=== PATIENT | female | born 1955 | race Caucasian/White ===

== ENCOUNTER 2021-01-06 13:19 | Outpatient (REF) | payer MEDICARE, SELFPAY ==
--- NOTE | ~2021-01-06 | XR_ITS ---
EXAMINATION: XR FOREARM, RIGHT XR WRIST, RIGHT XR RIGHT RIBS WITH CHEST CLINICAL INFORMATION: Unspecified fall. COMPARISON: None TECHNIQUE: 2 views right forearm. 4 views right wrist. Chest and right ribs 4 views. FINDINGS: RIGHT FOREARM: There is no visible fracture, dislocation or soft tissue abnormality. RIGHT WRIST: There is no visible acute fracture, dislocation or subluxation seen. The soft tissues are normal. CHEST: Lungs are well expanded and clear. The heart size and pulmonary vascularity are normal. RIGHT RIBS: Multiple views of right ribs reveal no visible fracture or bony abnormality. The soft tissues are normal. XR/XR ribs RT min 3V w CXR1V IMPRESSION: Unremarkable right forearm. Unremarkable right wrist exam. No fracture seen. Unremarkable chest and right rib exam.
--- NOTE | ~2021-01-06 | XR_ITS ---
EXAMINATION: XR FOREARM, RIGHT XR WRIST, RIGHT XR RIGHT RIBS WITH CHEST CLINICAL INFORMATION: Unspecified fall. COMPARISON: None TECHNIQUE: 2 views right forearm. 4 views right wrist. Chest and right ribs 4 views. FINDINGS: RIGHT FOREARM: There is no visible fracture, dislocation or soft tissue abnormality. RIGHT WRIST: There is no visible acute fracture, dislocation or subluxation seen. The soft tissues are normal. CHEST: Lungs are well expanded and clear. The heart size and pulmonary vascularity are normal. RIGHT RIBS: Multiple views of right ribs reveal no visible fracture or bony abnormality. The soft tissues are normal. XR/XR forearm RT 2V IMPRESSION: Unremarkable right forearm. Unremarkable right wrist exam. No fracture seen. Unremarkable chest and right rib exam.
--- NOTE | ~2021-01-06 | XR_ITS ---
EXAMINATION: XR FOREARM, RIGHT XR WRIST, RIGHT XR RIGHT RIBS WITH CHEST CLINICAL INFORMATION: Unspecified fall. COMPARISON: None TECHNIQUE: 2 views right forearm. 4 views right wrist. Chest and right ribs 4 views. FINDINGS: RIGHT FOREARM: There is no visible fracture, dislocation or soft tissue abnormality. RIGHT WRIST: There is no visible acute fracture, dislocation or subluxation seen. The soft tissues are normal. CHEST: Lungs are well expanded and clear. The heart size and pulmonary vascularity are normal. RIGHT RIBS: Multiple views of right ribs reveal no visible fracture or bony abnormality. The soft tissues are normal. XR/XR wrist RT min 3V IMPRESSION: Unremarkable right forearm. Unremarkable right wrist exam. No fracture seen. Unremarkable chest and right rib exam.
== END 2021-01-06 13:20 | disposition home or self-care (01) ==
LOC: HO.XRAY 13:19
PROVIDERS: PCP Internal Medicine; Visit Provider Nurse Practitioner Family
DX: S29.9XXA Unspecified injury of thorax, initial encounter (principal); S69.91XA Unspecified injury of right wrist, hand and finger(s), initial encounter; S59.911A Unspecified injury of right forearm, initial encounter; W19.XXXA Unspecified fall, initial encounter
CPT/HCPCS: 71101; 73090; 73110

== ENCOUNTER 2021-06-30 07:26 | Outpatient (REF) | payer MEDICARE, SELFPAY ==
[2021-06-30 11:24] LABS: Appearance Urine CLOUDY; Color Urine YELLOW; Glucose Urine UA NEG (NEG); Leukocyte Esterase Urine TRACE (NEG); Nitrite Urine NEG (NEG); Urine Blood NEG (NEG); Urine Ketones NEG (NEG); Urine Protein NEG (NEG-TRACE)
[2021-06-30 11:38] LABS: Mucus Urine 1+ /LPF; RBC Urine 0 /HPF (0); Squamous Epithelial Cell Urine 1+ /LPF
[2021-06-30 11:39] LABS: Bacteria Urine 2+ /LPF
[2021-06-30 11:40] LABS: Hematocrit 44.5 % (37.0-47.0); Hemoglobin 14.7 g/dl (12.0-16.0); Mean Corpuscular Hemoglobin 31.3 pg (27.0-33.0); Mean Corpuscular Volume 94.9 fL (80.0-98.0); Mean Platelet Volume 10.1 fL (9.4-12.3); Platelet Count 207 X10*3/uL (160-400); Red Blood Count 4.69 X10*6/uL (4.20-5.50); Red Cell Distribution Width 12.8 % (11.0-16.0); White Blood Count 4.3 X10*3/uL (4.8-10.8)
[2021-06-30 11:56] LABS: Alanine Aminotransferase 24 U/L (0-31); Albumin Level 4.2 g/dL (3.5-5.0); Alkaline Phosphatase 85 U/L (39-117); Anion Gap 15 (12-20); Aspartate Amino Transferase 18 U/L (5-31); Bilirubin Total 0.4 mg/dL (0.0-1.0); Blood Urea Nitrogen 14 mg/dL (9-16); Carbon Dioxide 27 mmol/L (22-29); Chloride 104 mmol/L (96-108); Cholesterol 214 mg/dL; Estimated Glomerular Filt Rate > 60; Glucose Fasting 100 mg/dL (60-99); HDL Cholesterol 73 mg/dL; LDL Cholesterol Calculated 122 mg/dl; Potassium 4.7 mmol/L (3.3-5.1); Sodium 141 mmol/L (135-145); Total Protein 6.6 g/dL (6.5-8.0); Triglycerides 99 mg/dL
== END 2021-06-30 07:27 | disposition home or self-care (01) ==
LOC: HO.HMGCLDS 07:26
PROVIDERS: PCP Internal Medicine; Visit Provider Internal Medicine
DX: I10 Essential (primary) hypertension (principal)
CPT/HCPCS: 36415; 80053; 80061; 81001; 84443; 85027

== ENCOUNTER 2021-08-25 14:00 | Outpatient (RCR) | payer MEDICARE, SELFPAY ==
--- NOTE | 2021-07-27 10:06 | MHC.PT.EP ---
[facility] [place] Office [place] Office [place] Office [address] [phone] F: [phone] F: [phone] F: [phone] F: [phone] Physical Therapy Plan of Care Date of Evaluation: Date of Surgery: N/A Diagnosis: Cervicalgia Pain in R shoulder Assessment: Pt is a pleasant 66yo F who presents to PT with R shoulder/neck pain s/p fall in December. She presents today with current impairments in pain, decreased R shoulder and cervical ROM, decreased R shoulder strength and endurance, impaired posture, and soft tissue restrictions. She is TTP throughout R UT, levator, and medial scap border. She is limited functionally by overhead ADLs, lifting, vacuuming, reading, and driving. She is an excellent candidate for skilled PT services to address current impairments in order to facilitate return to PLOF. She will be seen 2x/week for 4 weeks and will be reassessed at that time. Frequency and Duration: The patient will be seen 2x/week for 4 weeks Short Term Goals: Pt will be I with HEP to promote self management of symtpoms Pt will improve R cervical rotation by at least 5 degrees Longterm Goals: Pt will demonstrate full ROM throughout cervical spine Pt will perform overhead ADLs without pain or compensation throughout R shoulder and cervical spine Pt will demonstrate improvements in functional mobility as evidenced by statistically significant improvement in Neck Pain Disability Index Questionnaire Treatment Plan: Modalities to reduce pain, spasms and effusion. Manual therapy to restore motion and function. Therapeutic exercise to improve strength and flexibility. Neuromuscular re-education for posture and balance. Therapeutic activities to return to functional activities of daily living. Electronically signed by: Huyen Fowler, PT, DPT Please sign and return to therapist. Thank you for your referral.
--- NOTE | 2021-08-25 15:36 | MHC.PT.DC ---
[facility] [place] Office [place] Office [place] Office [address] [phone] F: [phone] F: [phone] F: [phone] F: [phone] Physical Therapy Discharge Report Diagnosis: Cervicalgia Pain in R shoulder Date of Surgery: N/A Date of Evaluation: 07/26/21 Date of Discharge: 08/25/21 Treatments to Date: 9 Cancellations to Date: 0 No Shows to Date: Discharge Status: Achieved Goals Improved Function Independent with HEP Discharge Summary: Pt has made excellent progress since SOC. She has met her STGs and made good progress toward her LTGs. She has had a decrease in pain and has improved cervical spine ROM. She is I and compliant with HEP. Pt is being D/C from skilled PT services at this time. Provided pt with printed, updated copy of HEP and theraband. Pt reports no further questions or concerns for PT at this time. Electronically signed by: Huyen Folwer, PT, DPT Please sign and return to therapist. Thank you for your referral.
== END 2021-08-25 15:36 | disposition home or self-care (01) ==
LOC: HO.PT 14:00
PROVIDERS: PCP Internal Medicine; Visit Provider Internal Medicine
DX: M54.2 Cervicalgia (principal); M25.511 Pain in right shoulder
CPT/HCPCS: 97110; 97140; 97150; 97161; 97530

== ENCOUNTER 2022-01-26 14:36 | Emergency (ER) | payer MEDICARE, SELFPAY ==
--- NOTE | ~2022-01-26 | XR_ITS ---
EXAMINATION: XR FINGER, LEFT CLINICAL INFORMATION: Middle finger injury COMPARISON: None TECHNIQUE: Three views of the left third finger. FINDINGS: Bone alignment is normal. No fracture or dislocation is seen. The bone appear osteopenic. The joint spaces are normal. Soft tissues are normal. XR/XR finger LT min 2V IMPRESSION: No fracture or dislocation.
[2022-01-26 14:46] VITALS: BP 128/77; PULSE 65; RESP 18; TEMP 36.3; O2SAT 97; BMI 20.3
--- NOTE | 2022-01-26 16:26 | ED_ITS ---
HPI - Extremity Problem General Chief complaint: Extremity Injury, Upper Stated complaint: l middle finger inj Time Seen by Provider: 01/26/22 15:36 Source: patient Mode of arrival: ambulatory Limitations: no limitations History of Present Illness HPI Narrative: 66-year-old female [id number] here with reports of pain, swelling and abrasions the left middle finger. Patient tells me she was vacuuming and her finger got Caught in the hose as the vaccum was on. She was able to remove finger without any intervention. She denies any weakness, numbness, tingling of the finger. Tetanus is up-to-date Related Data Previous Rx's Medication Instructions Recorded lisinopril 2.5 mg tablet 2.5 mg PO DAILY #90 tabs 03/18/21 diltiazem HCl 120 mg capsule,24 120 mg PO DAILY #90 caps 12/20/21 hr,extended release (Tiadylt ER) Allergies Allergy/AdvReac Type Severity Reaction Status Date / Time azithromycin AdvReac Unknown upset Verified 12/27/21 13:56 stomach Review of Systems Review of Systems: Yes all other systems are reviewed and are negative Constitutional: Constitutional: Reports no additional constitutional complaints, Denies fever(s) and Denies weakness Eyes: Eyes: Reports no additional eye complaints ENT: Reports system reviewed and no additional complaints, except as documented Cardiovascular: Cardiovascular: Reports no additional cardiovascular complaints and Denies acrocyanosis Respiratory: Respiratory: Reports no additional respiratory complaints Gastrointestinal: Gastrointestinal: Reports no additional gastrointestinal complaints Genitourinary: Genitourinary: Reports no additional female genitourinary complaints Musculoskeletal: Musculoskeletal: Reports no additional musculoskeletal complaints, Reports arthralgias, Reports joint swelling, Denies numbness and Denies tingling Integumentary/Breasts: Skin/Breast: Reports system reviewed and no additional complaints, except as docu and Denies rash Neurologic: Reports system reviewed and no additional complaints, except as documented, Denies Abnormal speech present, Denies numbness, Denies tingling and Denies weakness PMFSH Past Medical History Attestation statement: The following information was validated with the patient. Source: old records reviewed and nursing notes reviewed Medical History Esophageal spasm Mixed basal-squamous cell carcinoma Surgical History H/O colonoscopy S/P MAYELA (total abdominal hysterectomy) Social History Social History Housing: House Alcohol intake: current Alcohol intake frequency: a few times a week Patient Tobacco Use Status: Never used Tobacco e-Cigarette/Vaping Use: Never Used Advance Directives: No Advance Directives Information Provided: No Current occupational status: retired Cognitive needs: No Hearing needs: No Vision needs: Yes Physical Exam Vital Signs: Vital Signs: Last Vital Signs Temp 97.3 F 01/26/22 14:46 Pulse 65 01/26/22 14:46 Resp 18 01/26/22 14:46 BP 128/77 01/26/22 14:46 Pulse Ox 97 01/26/22 14:46 O2 Del Method 01/26/22 14:46 BMI result Body Mass Index 20.3 Const: General: cooperative, healthy appearing, comfortable and no acute distress Orientation/consciousness: patient oriented x3 Limitations: no limitations HEENT: Head: Yes normal to inspection Ears: hearing grossly normal bilaterally Eyes: General: appearance normal, both eyes and all related structures Neck: Neck: Yes normal visual inspection Chest: Chest palpation & inspection: normal inspection of the chest Resp: Effort & Inspection: normal respiratory effort Neuro: General: patient oriented x3 Cognition (Neuro): normal cognition Speech: No Abnormal speech present Gait exam (Neuro): Normal gait present Extrem: Other: to the dorsal aspect of the left middle finger there are abrasions. There is ecchymosis and swelling noted of the finger. The patient is able to flex the finger but does have some pain with flexion. There is no difficulty with extension. Neurovascularly intact distally to the injury. Normal cap refill. General: Yes normal to inspection Course Course Course Narrative: 66-year-old female [id number] here with reports of swelling, bruising, abrasions left middle finger after her finger was stuck in the vacuum hose. X- ray show no bony abnormality. Range of motion is intact. The patient's wound was cleansed by nursing and a topical antibiotic ointment was applied. Likely abrasions and contusions. Reviewed worrisome signs and symptoms and when to return to the emergency department. Comfortable discharge home. MDM - Extremity (Nontraumatic) Medical Records Attestation: I reviewed the patient's medical records. Lab Data Attestation: I reviewed the patient's lab results. Imaging Data hand xray: Attestation: I personally reviewed and interpreted this imaging study as gavin ariadne: Radiologist's impression: EXAMINATION: XR FINGER, LEFT CLINICAL INFORMATION: Middle finger injury? COMPARISON: None? TECHNIQUE: Three views of the left third finger. FINDINGS: Bone alignment is normal. No fracture or dislocation is seen. The bone appear osteopenic. The joint spaces are normal. Soft tissues are normal.? XR/XR finger LT min 2V IMPRESSION: No fracture or dislocation. ? Discharge Plan Discharge Clinical Impression: Contusion of finger of left hand, Abrasion of finger of left hand Patient Disposition: Home, Self-Care Instructions: Contusion in Adults (ED), Abrasion (ED) Additional Instructions: x-ray show no bony abnormality keep the abrasions clean, dry and covered ice as needed Motrin or Tylenol for pain Prescriptions: No Action lisinopril 2.5 mg tablet 2.5 mg PO DAILY Qty: 90 3RF diltiazem HCl [Tiadylt ER] 120 mg capsule,extended release 24 hr 120 mg PO DAILY Qty: 90 3RF Referrals: Tona Marte MD [Primary Care Provider] - 1 week ( for any persistent symptoms)
== END 2022-01-26 16:40 | disposition home or self-care (01) ==
LOC: HO.ED 16:23
PROVIDERS: Emergency Provider Emergency Medicine Emergency Medical Services; PCP Internal Medicine
DX: S60.222A Contusion of left hand, initial encounter (principal); S60.413A Abrasion of left middle finger, initial encounter; X58.XXXA Exposure to other specified factors, initial encounter; Y93.E3 Activity, vacuuming; Y92.9 Unspecified place or not applicable; Y99.9 Unspecified external cause status
CPT/HCPCS: 73140; 99283

== ENCOUNTER 2023-01-06 08:02 | Outpatient (REF) | payer MEDICARE, SELFPAY ==
[2023-01-06 08:16] LABS: MANUAL DIFF FLAG NO
[2023-01-06 08:46] LABS: Basophils Percent Auto 0.9 % (0-2); Eosinophils Absolute Auto 0.2 X10*3/uL (0.0-0.4); Eosinophils Percent Auto 5.4 % (0-4); Hematocrit 43.6 % (37.0-47.0); Hemoglobin 14.5 g/dl (12.0-16.0); Imm Gran Abs Auto 0.01 X10*3/uL (0.00-0.03); Imm Gran Pct Auto 0.2 % (0.0-0.4); Lymphocytes Absolute Auto 1.4 X10*3/uL (1.2-4.9); Lymphocytes Percent Auto 31.6 % (20-40); Mean Corpuscular HGB Conc 33.3 g/dl (31.0-35.0); Mean Corpuscular Hemoglobin 31.4 pg (27.0-33.0); Mean Corpuscular Volume 94.4 fL (80.0-98.0); Mean Platelet Volume 9.8 fL (9.4-12.3); Monocytes Absolute Auto 0.4 X10*3/uL (0.1-1.2); Monocytes Percent Auto 8.9 % (2-11); Neutrophils Absolute Auto 2.3 x10*3/uL (2.0-8.3); Platelet Count 197 X10*3/uL (160-400); Red Blood Count 4.62 X10*6/uL (4.20-5.50); Red Cell Distribution Width 12.7 % (11.0-16.0); White Blood Count 4.3 X10*3/uL (4.8-10.8)
[2023-01-06 09:17] LABS: Alanine Aminotransferase 18 U/L (0-31); Albumin Level 4.1 g/dL (3.5-5.0); Alkaline Phosphatase 73 U/L (39-117); Anion Gap 12 (12-20); Aspartate Amino Transferase 16 U/L (5-31); Bilirubin Total 0.5 mg/dL (0.0-1.0); Blood Urea Nitrogen 18 mg/dL (9-16); Calcium 9.4 mg/dL (8.4-10.2); Carbon Dioxide 28 mmol/L (22-29); Chloride 108 mmol/L (96-108); Cholesterol 204 mg/dL; Estimated Glomerular Filt Rate > 60; Glucose Fasting 102 mg/dL (60-99); HDL Cholesterol 76 mg/dL; LDL Cholesterol Calculated 111 mg/dl; Potassium 4.4 mmol/L (3.3-5.1); Sodium 144 mmol/L (135-145); Total Protein 6.4 g/dL (6.5-8.0); Triglycerides 89 mg/dL
[2023-01-06 09:33] LABS: TSH reflex Free T4 1.81 uIU/mL (0.32-4.0); Vitamin D 25-OH Total 37.3 ng/mL (>30)
== END 2023-01-06 08:03 | disposition home or self-care (01) ==
LOC: HO.LAB 08:02
PROVIDERS: PCP Internal Medicine; Visit Provider Internal Medicine
DX: Z00.00 Encounter for general adult medical examination without abnormal findings (principal); I10 Essential (primary) hypertension; M85.80 Other specified disorders of bone density and structure, unspecified site; E55.9 Vitamin D deficiency, unspecified
CPT/HCPCS: 36415; 80053; 80061; 82306; 84443; 85025

== ENCOUNTER 2023-01-24 14:11 | Outpatient (REF) | payer MEDICARE, SELFPAY ==
--- NOTE | ~2023-01-24 | MM_ITS ---
EXAMINATION: BONE DENSITOMETRY CLINICAL INDICATION: Other specified disorders of bone density and structure, unspecified site. COMPARISON: Baseline BD dated 07/17/2019. TECHNIQUE: Using a [employer] DXA System (software version: 13.1) manufactured by [employer], dual-energy x-ray absorptiometry was performed of the lumbar spine and left hip. The images are of good technical quality. Summary results are attached. FINDINGS: AP SPINE L1-L4: Current: BMD 0.831 g/cm2, Z-score -1.0, T-score -2.9, osteoporosis, 7.0% decrease from baseline (<5% change is not significant). Baseline: BMD 0.894 g/cm2. LEFT FEMUR, NECK: Current: BMD 0.723 g/cm2, Z-score -0.5, T-score -2.3, osteopenia. Baseline: BMD 0.744 g/cm2. LEFT FEMUR, TOTAL: Current: BMD 0.777 g/cm2, Z-score -0.3, T-score -1.8, osteopenia, 4.4% decrease from baseline (<5% change is not significant). Baseline: BMD 0.813 g/cm2. IDENTIFIED RISK FACTORS: Early menopause, history of fracture (adult), hysterectomy, right oophorectomy, secondary osteoporosis. HISTORY OF FRACTURE: Wrist. MEDICATIONS: Vitamin D. MM/XR DEXA axial skeleton IMPRESSION: 1. DIAGNOSIS: Osteoporosis based on the lowest T-score value of -2.9 in the lumbar spine applying World Health Organization criteria. 2. 10-YEAR FRACTURE RISK PREDICTION, FRAX: According to the guidelines, FRAX calculation should only be performed on patients in the osteopenia bone density category. Therefore, FRAX was not performed on this patient. 3. Treatment Recommendations: NOF guidelines recommend consideration for treatment in postmenopausal women and men age 50 and older presenting with the following: -A hip or vertebral (clinical or morphometric) fracture. -T-score less than or equal to -2.5 at the femoral neck or spine after appropriate evaluation to exclude secondary causes. -Low bone mass at the hip or spine and a 10-year fracture probability by FRAX of greater than or equal to 3% for hip fracture or greater than or equal to 20% for major osteoporotic fracture based on the [place] adapted WHO algorithm. 4. Other Recommendations: All treatment decisions require clinical judgment and consideration of individual patient factors, including patient preferences, comorbidities, previous drug use, risk factors not captured in the FRAX model (e.g. frailty, falls, vitamin D deficiency, increased bone turnover, interval significant decline in bone density) and possible under or overestimation of fracture risk by FRAX. Additional medical evaluation for secondary cause of low bone mineral density may be appropriate. FUTURE SCAN RECOMMENDATION: People with diagnosed cases of osteoporosis or at high risk for fracture should have regular bone mineral density tests. For patients eligible for Medicare, routine testing is allowed once every 2 years. The testing frequency can be increased to one year for patients who have rapidly progressing disease, those who are receiving or discontinuing medical therapy to restore bone mass, or have additional risk factors.
== END 2023-01-24 14:12 | disposition home or self-care (01) ==
LOC: HO.MAMMO 14:11
PROVIDERS: PCP Internal Medicine; Visit Provider Internal Medicine
DX: Z13.820 Encounter for screening for osteoporosis (principal); Z78.0 Asymptomatic menopausal state; M85.80 Other specified disorders of bone density and structure, unspecified site
CPT/HCPCS: 77080

== ENCOUNTER 2023-02-21 12:37 | Outpatient (AMB) | payer MEDICARE, SELFPAY ==
[2023-02-21 12:41] VITALS: BP 110/66; PULSE 72; O2SAT 97
--- NOTE | 2023-02-21 12:41 | MHC.PC.OV ---
Vital Signs 02/21/23 12:41 Height 5 ft 7 in Weight 128 lb BMI 20.0 BP 110/66 Blood Pressure Location Lt brachial Position Sitting Pulse 72 Pulse Source Pulse Oximeter Pulse Oximetry (%) 97 Oxygen Delivery Method Room Air Intake Visit Reasons: Discuss osteoporosis treatment Intake Note: Pt is here today for a follow up visit on Bone density results. Allergies azithromycin Adverse Reaction (Unknown, Verified 02/21/23 12:46) upset stomach Tobacco use date assessed: 02/21/23 Dental Screening Dental Screen Date: 02/21/23 Did you have a dental visit in the last 12 months?: Yes Did you have a dental problem in the last 6 months where you did not have access to dental care?: No Was dental information given to patient?: Patient has dentist HPI Discuss osteoporosis treatment HPI Details Patient presents to discuss osteoporosis. She had DEXA which revealed osteoporosis in lumbar spine with SD of -2.8. Patient is concerned about side effects of Fosamax. She has been exercising 4 times a week, walking and taking supplemental vitamin-D 3. [facility] Medical History (Updated 02/21/23 @ 13:32 by Tona Marte MD) Annual physical exam Esophageal spasm HTN (hypertension) Insomnia Mixed basal-squamous cell carcinoma Neck pain on right side Osteopenia Shoulder pain, right Vitamin D deficiency Surgical History H/O colonoscopy S/P MAYELA (total abdominal hysterectomy) Family History Father Hypertension Lymphoma Mother Hypertension Brother Mental health disorder Substance use disorder Social History Housing: House Alcohol intake: current Alcohol intake frequency: a few times a week Patient Tobacco Use Status: Never used Tobacco e-Cigarette/Vaping Use: Never Used Current occupational status: retired Cognitive needs: No Hearing needs: No Vision needs: Yes Questionnaire Thrive Questionnaire Date Thrive assessed: 01/03/23 AUDIT C Alcohol Use Questionnaire (AUDIT-C) 1. How often do you have a drink containing alcohol?: 2-3 times a week 2. How many drinks containing alcohol do you have on a typical day when you are drinking?: 1 or 2 3. How often do you have six or more drinks on one occasion?: Never Total Score: 3 AUGUSTINA-7 AMB Questionnaire AUGUSTINA-7 Date AUGUSTINA - 7 assessed: 01/03/23 Feeling nervous, anxious, or on edge: 3 = Nearly every day Not being able to stop or control worryin = Several days Worrying too much about different things: 2 = More than half the days Trouble relaxin = More than half the days Being so restless that it is hard to sit still: 3 = Nearly every day Becoming easily annoyed or irritable: 0 = Not at all Feeling afraid as if something awful might happen: 0 = Not at all Total AUGUSTINA-7 score (0-4 normal; 5-9 mild; 10-14 moderate; 15-21 severe): 11 Source: Developed by Drs. Natanael Mederos, Anupama Griffiths, Jamie Suh and colleagues, with an educational anca from [employer]. Review of Systems Const All systems reviewed & are unremarkable except as noted in HPI and below Reports no additional complaints Eyes Reports no additional complaints ENT Reports no additional complaints Card Reports no additional complaints Resp Reports no additional complaints GI Reports no additional complaints Reports no additional complaints Physical exam (Primary Care) Vital Signs: Last Vital Signs Pulse 72 02/21/23 12:41 BP 110/66 02/21/23 12:41 Pulse Ox 97 02/21/23 12:41 Oxygen Delivery Method Room Air 02/21/23 12:41 BMI result Body Mass Index 20.0 Tobacco/Smoking Status: Tobacco use Status Tobacco use date assessed 02/21/23 02/21/23 12:47 Patient Tobacco Use Status Never used Tobacco 02/21/23 12:41 e-Cigarette/Vaping Use Never Used 02/21/23 12:41 Thrive Assessment: Date of Thrive Assessment Date Thrive assessed 01/03/23 02/21/23 12:41 Const General: no acute distress HENMT Face and sinus: Yes normal facial exam Resp Effort & Inspection: normal respiratory effort Auscultation: clear to auscultation bilaterally Cardio Rhythm: regular rhythm Assessment and Plan Assessment & Plan (1) Osteopenia: Comment: DEXA 08/01, DEXA 01/03 osteoporosis lumbar SD - 2.9. Patient declined treatment with Fosamax. She prefers to recheck DEXA in 2 years Code(s): M85.80 - Other specified disorders of bone density and structure, unspecified site Plan: Patient will continue vitamin-D 3 and add resistant exercises to her exercise routine. DEXA will be rechecked in 2 years (2) HTN (hypertension): Code(s): I10 - Essential (primary) hypertension Plan: Continue current medications Coding Level of Care Code Est Pt Level 3 (41786) Diagnoses Osteopenia M85.80 HTN (hypertension) I10
== END 2023-02-21 13:34 | disposition home or self-care (01) ==
PROVIDERS: PCP Internal Medicine; Visit Provider Internal Medicine
DX: M85.80 Other specified disorders of bone density and structure, unspecified site (principal); I10 Essential (primary) hypertension
CPT/HCPCS: 99213

== ENCOUNTER 2023-08-18 12:54 | Emergency (ER) | payer MEDICARE, SELFPAY ==
[2023-08-18 13:40] VITALS: BP 137/80; PULSE 77; RESP 18; TEMP 36; O2SAT 98; BMI 20.4
--- NOTE | 2023-08-18 13:40 | ED.URI ---
HPI - URI/Sore Throat General Chief Complaint: Upper Respiratory Symptoms Stated Complaint: Cough/Congestion Time Seen by Provider: 08/18/23 15:05 Source: patient Mode of arrival: ambulatory Limitations: no limitations History of Present Illness HPI Narrative: Patient is a 68-year-old female presents emergency department with 1 week of productive cough with yellow/ green phlegm, sore throat which has been improving, sinus pressure, and myalgias. Endorses shortness of breath particularly during coughing episodes and chest discomfort diffusely across anterior chest experienced only while coughing. Denies fevers, chills, headache, dizziness, neck pain, neck stiffness, nausea, vomiting, abdominal pain, numbness or tingling of the extremities, genitourinary symptoms. Related Data Previous Rx's Medication Instructions Recorded diltiazem HCl 120 mg capsule,24 120 mg PO DAILY #90 caps 12/08/22 hr,extended release (Tiadylt ER) lisinopril 2.5 mg tablet 2.5 mg PO DAILY #90 tabs 03/07/23 amoxicillin 875 mg tablet 875 mg PO BID #14 tabs 06/19/23 amoxicillin 875 mg-potassium 1 tab PO BID #14 tabs 08/18/23 clavulanate 125 mg tablet Allergies Allergy/AdvReac Type Severity Reaction Status Date / Time azithromycin AdvReac Unknown upset Verified 08/18/23 13:40 stomach Review of Systems Review of Systems: Yes all other systems are reviewed and are negative PMFSH Past Medical History Attestation statement: The following information was validated with the patient. Source: old records reviewed Onset Date is defined in the Problem List Problems that require an onset date and time if occurred within 24 hrs of arrival to the ED Aortic Dissection and Rupture; Neurologic impairment; Cardiopulmonary Arrest; Endotracheal Intubation; Insertion or Replacement of Mechanical Circulatory Assist Device Medical History Vitamin D deficiency Shoulder pain, right Neck pain on right side Insomnia Annual physical exam Esophageal spasm Mixed basal-squamous cell carcinoma Osteopenia HTN (hypertension) Surgical History S/P MAYELA (total abdominal hysterectomy) H/O colonoscopy Family History Family History Father Hypertension Lymphoma Mother Hypertension Brother Mental health disorder Substance use disorder Social History Social History Housing: House Alcohol intake: current Alcohol intake frequency: a few times a week Patient Tobacco Use Status: Never used Tobacco e-Cigarette/Vaping Use: Never Used Advance Directives: No Advance Directives Information Provided: Yes Current occupational status: retired Cognitive needs: No Hearing needs: No Vision needs: Yes Physical Exam Vital Signs: Vital Signs: Last Vital Signs Temp 96.8 F 08/18/23 13:40 Pulse 73 08/18/23 15:10 Resp 14 08/18/23 15:10 BP 132/81 08/18/23 15:10 Pulse Ox 96 08/18/23 15:10 O2 Del Method Room Air 08/18/23 15:10 BMI result Body Mass Index 20.4 Appearance: Alert.?Oriented to person, place and time. No acute distress.?Normal affect. Eyes: Pupils equal, round and reactive to light.? ENT: TM normal bilaterally. Pharynx Mildly erythematous without exudates or hypertrophy. uvula midline. No trismus. No drooling. Neck: Normal inspection.? Neck supple.??No cervical adenopathy CVS: Heart sounds normal. Normal heart rate and rhythm.? Pulses normal.?? Respiratory: No respiratory distress.? Lung sounds clear to auscultation bilaterally?? Abdomen: Soft and non-tender. Normoactive bowel sounds. Skin: Skin warm and dry.? Normal skin color.? ? Extremities: No lower extremity edema.? Neuro: Moves all extremities spontaneously. Sensation intact bilaterally. No motor deficits. Ambulates with normal steady gait. Course Course Course Narrative: RME: 68 yo F w/ PMHx HTN presenting to the ED c/o productive cough, sore throat, myalgias, SOB x1 week. +chest discomfort from coughing Viral testing, CXR ordered Full HPI, ROS and PE to be performed by primary ED provider. Medical Decision Making Medical Decision Making MDM Narrative: Patient is a 68-year-old female presenting for evaluation of upper respiratory symptoms. COVID-19 testing /RSV/ influenza testing is negative. At this time history and physical exam not consistent with ACS/PE. Wells negative. CXR reveals No evidence of pneumonia. symptoms at this time most consistent with sinusitis/bronchitis. Well-appearing, nontoxic, afebrile, no tachycardia or tachypnea/hypoxia. Speaking clear full sentences, ambulatory with steady gait. sent prescription for antibiotic to patient's pharmacy.Discussed conservative treatment including rest, hydration, Tylenol/ibuprofen as needed for fever and body aches, saline nasal spray, humidifier, [id number]-ilxyode cold medication. Advised to follow-up with primary care provider as needed, discussed reasons to return back to the emergency department. All questions were answered. Patient discharged home in stable condition. Differential Diagnosis Differential Diagnoses: The differential diagnosis associated with the presentation includes ( See narrative above) Admission/Observation Consideration of admission/observation: Escalation of care including admission/observation considered ( see narrative above) Lab Data MDM Lab Attestation statement: I reviewed the patient's lab results. ( see narrative above) Labs: Lab Results 08/18/23 Range/Units 13:53 Influenza Type A (PCR) NEGATIVE (Negative) Influenza Type B (PCR) NEGATIVE (Negative) RSV RNA Qual (PCR) NEGATIVE (Negative) SARS-CoV-2 RNA (RT-PCR) NEGATIVE (Negative) Independent Interpretation I performed an independent interpretation of an: Plain X-Ray ( I personally interpreted chest x-ray and agree with radiologist impression.) Radiology Impression Discussion of test interpretation with radiology: I have reviewed the radiologist's reading. Radiologist Impression: XR/XR chest 2V IMPRESSION: Unremarkable chest examination. Independent Historian Clinical information obtained from an independent historian. History obtained from or confirmed by: Spouse Prescription Management I considered prescription management with: Pain Medication ( acetaminophen/ibuprofen) and Antibiotic Discharge Plan Discharge Clinical Impression: Sinusitis, Bronchitis Patient Disposition: Home, Self-Care Instructions: Sinusitis (ED), Acute Bronchitis (ED) Prescriptions: New amoxicillin-pot clavulanate 875-125 mg tablet 1 tab PO BID Qty: 14 0RF No Action diltiazem HCl [Tiadylt ER] 120 mg capsule,extended release 24 hr 120 mg PO DAILY Qty: 90 3RF lisinopril 2.5 mg tablet 2.5 mg PO DAILY Qty: 90 3RF amoxicillin 875 mg tablet 875 mg PO BID Qty: 14 0RF Referrals: Tona Marte MD [Primary Care Provider] -
[2023-08-18 15:10] VITALS: BP 132/81; PULSE 73; RESP 14; O2SAT 96
== END 2023-08-18 16:56 | disposition home or self-care (01) ==
PROVIDERS: Emergency Provider Student in an Organized Health Care Education/Training Program; PCP Internal Medicine
DX: J32.9 Chronic sinusitis, unspecified (principal); J40 Bronchitis, not specified as acute or chronic; R05.9 Cough, unspecified; R09.81 Nasal congestion; Z20.822 Contact with and (suspected) exposure to COVID-19; Z20.828 Contact with and (suspected) exposure to other viral communicable diseases
CPT/HCPCS: 0241U; 71046; 99283

== ENCOUNTER 2023-09-01 08:25 | Emergency (ER) | payer MEDICARE, SELFPAY ==
--- NOTE | ~2023-09-01 | XR_ITS ---
EXAMINATION: XR CHEST CLINICAL INFORMATION: Fever and cough. Covid. COMPARISON: 08/18/2023 TECHNIQUE: Frontal view of the chest was obtained. FINDINGS: The lungs are well expanded. No focal consolidation. No pleural effusion. Cardiac silhouette is unchanged. XR/XR chest 1V IMPRESSION: No acute abnormality.
[2023-09-01 08:28] VITALS: BP 111/77; PULSE 94; RESP 16; TEMP 36.9; O2SAT 95; BMI 20.4
[2023-09-01 09:03] LABS: COVID-19 Test Positive (Negative); IDNOW Serial# 152EDE1D
[2023-09-01 09:11] LABS: IDNOW Serial# 9DB6401D
[2023-09-01 09:12] LABS: Influenza A Negative (Negative); Influenza B2 Negative (Negative)
--- NOTE | 2023-09-01 10:19 | ED.FEVER ---
HPI - Fever General Chief Complaint: Fever Stated Complaint: Fever Time Seen by Provider: 09/01/23 09:54 Source: patient, RN notes reviewed and old records reviewed Mode of arrival: ambulatory History of Present Illness HPI Narrative: 68-year-old female with a past medical history of HTN, insomnia, presenting to the ED complaining of fever T-max 103 degrees, myalgias, chills, sore throat, cough, mild SOB x2-3 days. Denies chest pain, recent travel, sick contacts, abdominal pain MD elicited complaint: fever Related Data Previous Rx's Medication Instructions Recorded diltiazem HCl 120 mg capsule,24 120 mg PO DAILY #90 caps 12/08/22 hr,extended release (Tiadylt ER) lisinopril 2.5 mg tablet 2.5 mg PO DAILY #90 tabs 03/07/23 amoxicillin 875 mg tablet 875 mg PO BID #14 tabs 06/19/23 amoxicillin 875 mg-potassium 1 tab PO BID #14 tabs 08/18/23 clavulanate 125 mg tablet Allergies Allergy/AdvReac Type Severity Reaction Status Date / Time azithromycin AdvReac Unknown upset Verified 08/18/23 13:40 stomach Review of Systems Review of Systems: Constitutional:+ Fever, No Chills ENT/Mouth: No Ear Pain, + Nasal Congestion, No Sinus Pain, No Hoarseness,+ sore throat, No Rhinorrhea, No Swallowing Difficulty Cardiovascular: No Chest Pain, + SOB Respiratory: + Cough, No Sputum, No Wheezing Gastrointestinal: No Nausea, No Vomiting, No Diarrhea, No Constipation, No Abdominal pain Genitourinary: No Dysuria, No Urinary Frequency, No Hematuria Musculoskeletal: No joint pain, + Myalgias, No Joint Swelling Skin: No Skin Lesions, No rash Neuro: No Weakness Yes all other systems are reviewed and are negative Constitutional: Constitutional: Reports as per [facility] Past Medical History Attestation statement: The following information was validated with the patient. Source: old records reviewed Onset Date is defined in the Problem List Problems that require an onset date and time if occurred within 24 hrs of arrival to the ED Aortic Dissection and Rupture; Neurologic impairment; Cardiopulmonary Arrest; Endotracheal Intubation; Insertion or Replacement of Mechanical Circulatory Assist Device Medical History Vitamin D deficiency Shoulder pain, right Neck pain on right side Insomnia Annual physical exam Esophageal spasm Mixed basal-squamous cell carcinoma Osteopenia HTN (hypertension) Surgical History S/P MAYELA (total abdominal hysterectomy) H/O colonoscopy Family History Family History Father Hypertension Lymphoma Mother Hypertension Brother Mental health disorder Substance use disorder Social History Social History Housing: House Alcohol intake: current Alcohol intake frequency: a few times a week Patient Tobacco Use Status: Never used Tobacco e-Cigarette/Vaping Use: Never Used Advance Directives: No Advance Directives Information Provided: Yes Current occupational status: retired Cognitive needs: No Hearing needs: No Vision needs: Yes Physical Exam Vital Signs: Vital Signs: Last Vital Signs Temp 98.5 F 09/01/23 08:28 Pulse 94 09/01/23 10:27 Resp 16 09/01/23 10:27 BP 112/74 09/01/23 10:27 Pulse Ox 94 09/01/23 10:27 O2 Del Method Room Air 09/01/23 10:27 BMI result Body Mass Index 20.4 Const: General: cooperative, healthy appearing and no acute distress Orientation/consciousness: patient oriented x3 Limitations: no limitations HEENT: Head: Yes normal to inspection and Yes atraumatic Ears: hearing grossly normal bilaterally General nose exam: Normal external nose present Face and sinus: Yes normal facial exam Mouth: Normal oral and palatal mucosa present Throat: Yes tonsils normal, No peritonsillar mass, Yes posterior oropharynx abnormal (Erythematous), No uvula laterally displaced and No uvular edema Eyes: General: appearance normal, both eyes and all related structures EOM: EOMs intact bilaterally Neck: Neck: Yes normal visual inspection and Yes no meningeal signs Resp: Effort & Inspection: normal respiratory effort and no respiratory distress Auscultation: clear to auscultation bilaterally, no crackles and no wheezes Cardio: Rate: regular rate Heart sounds: S1 normal heart sound present and S2 normal heart sound present Skin: Rashes: no rashes Wounds: no wounds Neuro: General: patient oriented x3, tone normal and no meningeal signs Cranial nerves: Yes CN's II-XII intact bilaterally Gait exam (Neuro): Normal gait present Extrem: General: Yes normal to inspection Course Course Course Narrative: -COVID-19 positive. Influenza and rapid strep negative 1258--XR chest 1V IMPRESSION: No acute abnormality. Results discussed with patient including worrisome signs and symptoms and strict return precautions, and when to return to the emergency department. They verbalized understanding and feel safe for discharge at this time. Medical Decision Making Medical Decision Making MDM Narrative: 68-year-old female with a past medical history of HTN, insomnia, presenting to the ED complaining of fever T-max 103 degrees, myalgias, chills, sore throat, cough, mild SOB x2-3 days. On exam vital signs stable, NAD, nontoxic appearing, physical exam as noted above. Concern for viral illness vs pneumonia or bronchitis. Rule out strep pharyngitis. No evidence of [employer]/retropharyngeal abscess Plan: Viral testing, CXR, rapid strep Please refer to course for remaining clinical decision making, interpretation of labs/imaging results, and discussions with consultants and/or family members. Differential Diagnosis Differential Diagnoses: The differential diagnosis associated with the presentation includes As above Lab Data [facility] Lab Attestation statement: I reviewed the patient's lab results. Labs: Lab Results 09/01/23 09/01/23 Range/Units 08:44 10:08 COVID-19 ([facility]) Positive A (Negative) COVID-19 Clin Com See Note Influenza Type A ([facility]) Negative (Negative) Influenza Type B ([facility]) Negative (Negative) Influenza A & B Note See Note S. pyogenes GrpA [facility] Negative (Negative) Independent Interpretation I performed an independent interpretation of an: Plain X-Ray Radiology Impression Discussion of test interpretation with radiology: I have reviewed the radiologist's reading. External Record Review External record reviewed: Inpatient record, Office record, Outpatient record, Prior outpatient labs, Prior outpatient radiology, Primary care record and Outside ED record Tests considered The following testing was considered but not selected: As above Prescription Management I considered prescription management with: Pain Medication, Antiviral and Antibiotic Chronic Conditions Patient?s care impacted by: Hypertension Discharge Plan Discharge Clinical Impression: COVID-19 Patient Disposition: Home, Self-Care Instructions: COVID-19 (Coronavirus Disease 2019) (ED) Additional Instructions: YOU HAVE COVID-19 At this time you will be okay for discharge. Please self isolate for 5 days. Do not expose yourself to others. You may not go to work or school. Please continue to follow cold instructions and wash your hands frequently. You may take Tylenol / Motrin as directed on the bottle for pain or fever. If you have constant or persistent shortness of breath, fever unresolved with medications, chest pain, or your unable to eat or drink please return to the ED CDC Guidelines for home isolation: - Stay away from others - WEAR A MASK if you are sick AND STAY HOME - Cover your mouth and nose with a tissue when you cough or sneeze. Dispose of tissues in a lined trash can and wash your hands immediately with soap and water for at least 20 seconds. If soap and water are not available, clean hands with alcohol-based hand process specialist that contains at least 60% alcohol. - Clean your hands often with soap and water for at least 20 seconds - Avoid touching your eyes, nose and mouth with unwashed hands - Do not share dishes, drinking glasses, cups, eating utensils, towels, or bedding with other people in your home. After using these items, wash them thoroughly with soap and water or put in the multiple cut off saw operator. - Clean high-touch surfaces in your isolation area ( sick room and bathroom) every day; let a caregiver clean and disinfect high-touch surfaces in other areas of the home. Clean the area or item with soap and water or another detergent if it is dirty. Then, use a household disinfectant. - Limit contact with pets and animals: If you must care for a pet, wash your hands before and after interacting with them) Prescriptions: No Action diltiazem HCl [Tiadylt ER] 120 mg capsule,extended release 24 hr 120 mg PO DAILY Qty: 90 3RF lisinopril 2.5 mg tablet 2.5 mg PO DAILY Qty: 90 3RF amoxicillin 875 mg tablet 875 mg PO BID Qty: 14 0RF amoxicillin-pot clavulanate 875-125 mg tablet 1 tab PO BID Qty: 14 0RF Referrals: Tona Marte MD [Primary Care Provider] - 10 days
[2023-09-01 10:20] LABS: IDNOW Serial# 08D9AD1C; Strep A Nucleic Acid Negative (Negative)
[2023-09-01 10:27] VITALS: BP 112/74; PULSE 94; RESP 16; O2SAT 94
== END 2023-09-01 13:30 | disposition home or self-care (01) ==
PROVIDERS: Physician Assistant; Emergency Provider Emergency Medicine; PCP Internal Medicine
DX: U07.1 COVID-19 (principal); R50.9 Fever, unspecified; I10 Essential (primary) hypertension
CPT/HCPCS: 71045; 87502; 87635; 87651; 99283

== ENCOUNTER 2024-02-21 11:31 | Outpatient (AMB) | payer MEDICARE, SELFPAY ==
[2024-02-21 11:38] VITALS: BP 118/72; PULSE 73; O2SAT 96; BMI 20.7
--- NOTE | 2024-02-21 11:38 | MHC.PC.OV ---
Vital Signs 02/21/24 11:38 Height 5 ft 7 in Weight 132 lb BMI 20.7 BP 118/72 Blood Pressure Location Lt brachial Position Sitting Pulse 73 Pulse Source Pulse Oximeter Pulse Oximetry (%) 96 Oxygen Delivery Method Room Air Intake Visit Reasons: orders Intake Note: Pt is here today for PE. Allergies azithromycin Adverse Reaction (Unknown, Verified 02/21/24 11:57) upset stomach Medication List - Last Reconciled 02/21/24 by Tona Marte MD diltiazem HCl ER (Tiadylt ER) 120 mg PO DAILY lisinopril 2.5 mg PO DAILY Tobacco use date assessed: 02/21/24 Fall risk assessment: No Falls in past year Last assessed Fall Risk: 02/21/24 Dental Screening Dental Screen Date: 02/21/24 Did you have a dental visit in the last 12 months?: Yes Did you have a dental problem in the last 6 months where you did not have access to dental care?: No Was dental information given to patient?: Patient has dentist HPI orders HPI Details Pt presents for a PE and f/u HTN, stable on meds. PFSH Medical History Vitamin D deficiency Shoulder pain, right Neck pain on right side Insomnia Annual physical exam Esophageal spasm Mixed basal-squamous cell carcinoma Osteopenia HTN (hypertension) Surgical History S/P MAYELA (total abdominal hysterectomy) H/O colonoscopy Family History Father Hypertension Lymphoma Mother Hypertension Brother Mental health disorder Substance use disorder Social History Housing: House Alcohol intake: current Alcohol intake frequency: a few times a week Patient Tobacco Use Status: Never used Tobacco e-Cigarette/Vaping Use: Never Used service: No Current occupational status: retired Cognitive needs: No Hearing needs: No Vision needs: Yes Questionnaire PHQ-9 Over the last 2 weeks, how often have you been bothered by any of the following problems? 1. Little interest or pleasure in doing things: not at all 2. Feeling down, depressed, or hopeless: not at all 3. Trouble falling or staying asleep, or sleeping too much: not at all 4. Feeling tired or having little energy: not at all 5. Poor appetite or overeating: not at all 6. Feeling bad about yourself - or that you are a failure or have let yourself or your family down: not at all 7. Trouble concentrating on things, such as reading the newspaper or watching television: not at all 8. Moving or speaking so slowly that other people could have noticed. Or the opposite - being so fidgety or restless that you have been moving around a lot more than usual: not at all 9. Thoughts that you would be better off or of hurting yourself in some way: not at all Total score: 0 Depression Screening Interpretation: Negative Depression Screening Done: Yes Source: Developed by Drs. Natanael Mederos, Anupama Griffiths, Jamie Suh and colleagues, with an educational anca from [employer]. Thrive Questionnaire Date Thrive assessed: 02/21/24 I am a: Patient What is your living situation today?: I have a steady place to live Within the past 12 months, did the food you bought not last and you didn't have the money to get more?: Never true Within the past 12 months, did you worry whether your food would run out before you got money to buy more?: Never true Do you have trouble paying for medicines?: No Do you have trouble getting transportation to medical appointments?: No Do you have trouble paying your heating and electricity bill?: No Do you have trouble taking care of your child, family member or friend?: No Do you have trouble with day-to-day activities such as bathing, preparing meals, shopping, managing finances, etc.?: No Are you currently unemployed and looking for a job?: No Are you interested in more education?: No Please select the resources that you would like help with: None THRIVE Score: 0 AUDIT C Alcohol Use Questionnaire (AUDIT-C) 1. How often do you have a drink containing alcohol?: Monthly or less 2. How many drinks containing alcohol do you have on a typical day when you are drinking?: 1 or 2 3. How often do you have six or more drinks on one occasion?: Never Total Score: 1 AUGUSTINA-7 AMB Questionnaire AUGUSTINA-7 Date AUGUSTINA - 7 assessed: 02/21/24 Feeling nervous, anxious, or on edge: 0 = Not at all Not being able to stop or control worryin = Not at all Worrying too much about different things: 0 = Not at all Trouble relaxin = Not at all Being so restless that it is hard to sit still: 0 = Not at all Becoming easily annoyed or irritable: 0 = Not at all Feeling afraid as if something awful might happen: 0 = Not at all Total AUGUSTINA-7 score (0-4 normal; 5-9 mild; 10-14 moderate; 15-21 severe): 0 Source: Developed by Drs. Natanael Mederos, Anupama Griffiths, Jamie Suh and colleagues, with an educational anca from [employer]. Review of Systems Const All systems reviewed & are unremarkable except as noted in HPI and below Eyes Reports no additional complaints ENT Reports no additional complaints Card Reports no additional complaints Resp Reports no additional complaints GI Reports no additional complaints Reports no additional complaints Physical exam (Primary Care) Vital Signs: Last Vital Signs Pulse 73 02/21/24 11:38 BP 118/72 02/21/24 11:38 Pulse Ox 96 02/21/24 11:38 Oxygen Delivery Method Room Air 02/21/24 11:38 BMI result Body Mass Index 20.7 Tobacco/Smoking Status: Tobacco use Status Tobacco use date assessed 02/21/24 02/21/24 11:39 Patient Tobacco Use Status Never used Tobacco 02/21/24 11:39 e-Cigarette/Vaping Use Never Used 02/21/24 11:39 PHQ-9: PHQ-9 Score PHQ-9: Total score 0 02/21/24 12:48 Depression Screening Interpretation: Negative Thrive Assessment: Date of Thrive Assessment Date Thrive assessed 02/21/24 02/21/24 12:48 Const General: no acute distress HENMT Head: Yes normal to inspection Ears: hearing grossly normal bilaterally Face and sinus: Yes normal facial exam Throat: Yes posterior oropharynx normal Eyes General: appearance normal, both eyes and all related structures Neck Neck: Yes no lymphadenopathy and Yes supple Resp Effort & Inspection: normal respiratory effort Auscultation: clear to auscultation bilaterally Cardio Rhythm: regular rhythm Heart sounds: S1 normal heart sound present and S2 normal heart sound present GI Inspection: Yes normal to inspection Palpation (GI): Soft to palpation Percussion: Yes normal to percussion Auscultation: normal bowel sounds Assessment and Plan Assessment & Plan (1) HTN (hypertension): Code(s): I10 - Essential (primary) hypertension Plan: Continue current medications (2) Annual physical exam: Code(s): Z00.00 - Encounter for general adult medical examination without abnormal findings Plan: Well-balanced diet regular exercise discussed with the patient she has up-to-date with the mammogram and colonoscopy (3) Vitamin D deficiency: Code(s): E55.9 - Vitamin D deficiency, unspecified Plan: Continue vitamin-D supplement (4) Osteopenia: Comment: DEXA 08/01, DEXA 01/03 osteoporosis lumbar SD - 2.9. Patient declined treatment with Fosamax. She prefers to recheck DEXA in 2 years Code(s): M85.80 - Other specified disorders of bone density and structure, unspecified site Plan: Continue weight-bearing exercises vitamin-D supplement repeat DEXA next year Orders: Orders Complete Blood Count Auto Diff Today E55.9 - Vitamin D deficiency, unspecified, I10 - Essential (primary) hypertension, Z00.00 - Encounter for general adult medical examination without abnormal findings Lipid Panel Today E55.9 - Vitamin D deficiency, unspecified, I10 - Essential (primary) hypertension, Z00.00 - Encounter for general adult medical examination without abnormal findings Vitamin D 25-OH Total Today E55.9 - Vitamin D deficiency, unspecified, I10 - Essential (primary) hypertension, Z00.00 - Encounter for general adult medical examination without abnormal findings Comprehensive [place]. Panel Fast 1 Year I10 - Essential (primary) hypertension, Z00.00 - Encounter for general adult medical examination without abnormal findings Comprehensive [place]. Panel Fast Today E55.9 - Vitamin D deficiency, unspecified, I10 - Essential (primary) hypertension, Z00.00 - Encounter for general adult medical examination without abnormal findings TSH reflex Free T4 Today E55.9 - Vitamin D deficiency, unspecified, I10 - Essential (primary) hypertension, Z00.00 - Encounter for general adult medical examination without abnormal findings Complete Blood Count Auto Diff 1 Year I10 - Essential (primary) hypertension, Z00.00 - Encounter for general adult medical examination without abnormal findings Lipid Panel 1 Year I10 - Essential (primary) hypertension, Z00.00 - Encounter for general adult medical examination without abnormal findings TSH reflex Free T4 1 Year I10 - Essential (primary) hypertension, Z00.00 - Encounter for general adult medical examination without abnormal findings Coding Level of Care Code Est Pt Prev Care >65y(86680) Diagnoses HTN (hypertension) I10 Annual physical exam Z00.00 Vitamin D deficiency E55.9 Osteopenia M85.80
== END 2024-02-21 15:25 | disposition home or self-care (01) ==
PROVIDERS: PCP Internal Medicine; Visit Provider Internal Medicine
DX: I10 Essential (primary) hypertension (principal); Z00.00 Encounter for general adult medical examination without abnormal findings; E55.9 Vitamin D deficiency, unspecified; M85.80 Other specified disorders of bone density and structure, unspecified site
CPT/HCPCS: 99397

== ENCOUNTER 2024-02-26 09:13 | Outpatient (REF) | payer MEDICARE, SELFPAY ==
[2024-02-26 09:27] LABS: MANUAL DIFF FLAG NO
[2024-02-26 10:40] LABS: Basophils Percent Auto 0.7 % (0-2); Eosinophils Absolute Auto 0.2 X10*3/uL (0.0-0.4); Eosinophils Percent Auto 5.4 % (0-4); Hematocrit 44.1 % (37.0-47.0); Hemoglobin 14.7 g/dl (12.0-16.0); Imm Gran Abs Auto 0.02 X10*3/uL (0.00-0.03); Imm Gran Pct Auto 0.4 % (0.0-0.4); Lymphocytes Absolute Auto 1.3 X10*3/uL (1.2-4.9); Lymphocytes Percent Auto 29.5 % (20-40); Mean Corpuscular HGB Conc 33.3 g/dl (31.0-35.0); Mean Corpuscular Hemoglobin 31.6 pg (27.0-33.0); Mean Corpuscular Volume 94.8 fL (80.0-98.0); Mean Platelet Volume 10.3 fL (9.4-12.3); Monocytes Absolute Auto 0.3 X10*3/uL (0.1-1.2); Monocytes Percent Auto 7.1 % (2-11); Neutrophils Absolute Auto 2.6 x10*3/uL (2.0-8.3); Neutrophils Percent Auto 56.9 % (45-73); Platelet Count 178 X10*3/uL (160-400); Red Blood Count 4.65 X10*6/uL (4.20-5.50); Red Cell Distribution Width 12.8 % (11.0-16.0); White Blood Count 4.5 X10*3/uL (4.8-10.8)
[2024-02-26 11:08] LABS: Alanine Aminotransferase 32 U/L (0-31); Albumin Level 4.2 g/dL (3.5-5.0); Alkaline Phosphatase 74 U/L (39-117); Anion Gap 12 (12-20); Aspartate Amino Transferase 23 U/L (5-31); Bilirubin Total 0.4 mg/dL (0.0-1.0); Blood Urea Nitrogen 20 mg/dL (9-16); Calcium 9.8 mg/dL (8.4-10.2); Carbon Dioxide 29 mmol/L (22-29); Chloride 107 mmol/L (96-108); Cholesterol 199 mg/dL (<200); Estimated Glomerular Filt Rate > 60; Glucose Fasting 95 mg/dL (60-99); HDL Cholesterol 75 mg/dL (>40); LDL Cholesterol Calculated 107 mg/dL (<100); Potassium 4.9 mmol/L (3.3-5.1); Sodium 143 mmol/L (135-145); Triglycerides 85 mg/dL (<150)
[2024-02-26 11:27] LABS: TSH reflex Free T4 1.47 uIU/mL (0.32-4.0); Vitamin D 25-OH Total 46.8 ng/mL (>30)
== END 2024-02-26 09:14 | disposition home or self-care (01) ==
LOC: HO.LAB 09:13
PROVIDERS: PCP Internal Medicine; Visit Provider Internal Medicine
DX: Z00.00 Encounter for general adult medical examination without abnormal findings (principal); E55.9 Vitamin D deficiency, unspecified; I10 Essential (primary) hypertension
CPT/HCPCS: 36415; 80053; 80061; 82306; 84443; 85025

== ENCOUNTER 2025-02-18 11:52 | Outpatient (AMB) | payer MEDICARE, SELFPAY ==
[2025-02-18 11:55] VITALS: BP 110/66; PULSE 73; RESP 18; TEMP 36.7; O2SAT 97; BMI 20.2
--- NOTE | 2025-02-18 11:55 | MHC.PC.OV ---
Vital Signs 02/18/25 11:55 Height 5 ft 7 in Weight 129 lb BMI 20.2 BP 110/66 Blood Pressure Location Rt brachial Position Sitting Respiration 18 Pulse 73 Pulse Source Pulse Oximeter Temp 98.0 F Temp Source Oral Pulse Oximetry (%) 97 Oxygen Delivery Method Room Air Intake Visit Reasons: annual phicalys Intake Note: Pt is here today for PE. Allergies azithromycin Adverse Reaction (Unknown, Verified 02/18/25 11:57) upset stomach Medication List - Last Reconciled 02/18/25 by Tona Marte MD diltiazem HCl ER (Tiadylt ER) 120 mg PO DAILY lisinopril 2.5 mg PO DAILY Tobacco use date assessed: 02/18/25 Fall risk assessment: No Falls in past year Last assessed Fall Risk: 02/18/25 Dental Screening Dental Screen Date: 02/18/25 Did you have a dental visit in the last 12 months?: Yes Did you have a dental problem in the last 6 months where you did not have access to dental care?: No Was dental information given to patient?: Patient has dentist HPI annual phicalys HPI Details Pt presents for PE. PFSH Medical History (Updated 02/18/25 @ 15:46 by Tona Marte MD) Vitamin D deficiency Shoulder pain, right Neck pain on right side Insomnia Annual physical exam Esophageal spasm Mixed basal-squamous cell carcinoma HTN (hypertension) Surgical History S/P MAYELA (total abdominal hysterectomy) H/O colonoscopy Family History Father Hypertension Lymphoma Mother Hypertension Brother Mental health disorder Substance use disorder Social History Housing: House Alcohol intake: current Alcohol intake frequency: a few times a week Patient Tobacco Use Status: Never used Tobacco e-Cigarette/Vaping Use: Never Used service: No Current occupational status: retired Cognitive needs: No Hearing needs: No Vision needs: Yes Questionnaire PHQ-9 Over the last 2 weeks, how often have you been bothered by any of the following problems? 1. Little interest or pleasure in doing things: not at all 2. Feeling down, depressed, or hopeless: not at all 3. Trouble falling or staying asleep, or sleeping too much: several days 4. Feeling tired or having little energy: several days 5. Poor appetite or overeating: not at all 6. Feeling bad about yourself - or that you are a failure or have let yourself or your family down: not at all 7. Trouble concentrating on things, such as reading the newspaper or watching television: not at all 8. Moving or speaking so slowly that other people could have noticed. Or the opposite - being so fidgety or restless that you have been moving around a lot more than usual: not at all 9. Thoughts that you would be better off or of hurting yourself in some way: not at all Total score: 2 Depression Screening Interpretation: Negative Depression Screening Done: Yes 67052 - PHQ-9 Billing: Yes Source: Developed by Drs. Natanael Mederos, Anupama Griffiths, Jamie Suh and colleagues, with an educational anca from [employer] Thrive Questionnaire Date Thrive assessed: 02/18/25 I am a: Patient What is your living situation today?: I have a steady place to live Within the past 12 months, did the food you bought not last and you didn't have the money to get more?: Never true Within the past 12 months, did you worry whether your food would run out before you got money to buy more?: Never true Do you have trouble paying for medicines?: No Do you have trouble getting transportation to medical appointments?: No Do you have trouble paying your heating and electricity bill?: No Do you have trouble taking care of your child, family member or friend?: No Do you have trouble with day-to-day activities such as bathing, preparing meals, shopping, managing finances, etc.?: No Are you currently unemployed and looking for a job?: No Are you interested in more education?: I choose not to answer this question Please select the resources that you would like help with: None Currently or been in a relationship where the following occur: I choose not to answer THRIVE Score: 0 AUDIT C Alcohol Use Questionnaire (AUDIT-C) 1. How often do you have a drink containing alcohol?: Monthly or less 2. How many drinks containing alcohol do you have on a typical day when you are drinking?: 1 or 2 3. How often do you have six or more drinks on one occasion?: Never Total Score: 1 AUGUSTINA-7 AMB Questionnaire AUGUSTINA-7 Date AUGUSTINA - 7 assessed: 02/18/25 Feeling nervous, anxious, or on edge: 2 = More than half the days Not being able to stop or control worryin = Not at all Worrying too much about different things: 1 = Several days Trouble relaxin = More than half the days Being so restless that it is hard to sit still: 0 = Not at all Becoming easily annoyed or irritable: 0 = Not at all Feeling afraid as if something awful might happen: 0 = Not at all Total AUGUSTINA-7 score (0-4 normal; 5-9 mild; 10-14 moderate; 15-21 severe): 5 Source: Developed by Drs. Natanael Mederos, Anupama Griffiths, Jamie Suh and colleagues, with an educational anca from [employer] AUGUSTINA-7 Assessment Billing AUGUSTINA-7 Assessment Tool: AUGUSTINA-7 Assessment 90182 Review of Systems Const All systems reviewed & are unremarkable except as noted in HPI and below Eyes Reports no additional complaints ENT Reports no additional complaints Card Reports no additional complaints Resp Reports no additional complaints GI Reports no additional complaints Reports no additional complaints Physical exam (Primary Care) Vital Signs: Last Vital Signs Temp 98.0 F 02/18/25 11:55 Pulse 73 02/18/25 11:55 Resp 18 02/18/25 11:55 BP 110/66 02/18/25 11:55 Pulse Ox 97 02/18/25 11:55 Oxygen Delivery Method Room Air 02/18/25 11:55 BMI result Body Mass Index 20.2 Tobacco/Smoking Status: Tobacco use Status Tobacco use date assessed 02/18/25 02/18/25 12:01 Patient Tobacco Use Status Never used Tobacco 02/18/25 11:55 e-Cigarette/Vaping Use Never Used 02/18/25 11:55 PHQ-9: PHQ-9 Score PHQ-9: Total score 2 02/18/25 12:59 Depression Screening Interpretation: Negative Thrive Assessment: Date of Thrive Assessment Date Thrive assessed 02/18/25 02/18/25 12:01 Currently or been in a relationship where the following occur: I choose not to answer Const General: no acute distress HENMT Head: Yes normal to inspection General nose exam: Normal external nose present Face and sinus: Yes normal facial exam Mouth: Normal oral and palatal mucosa present Throat: Yes posterior oropharynx normal Eyes General: appearance normal, both eyes and all related structures Neck Neck: Yes no lymphadenopathy and Yes supple Resp Effort & Inspection: normal respiratory effort Auscultation: clear to auscultation bilaterally Cardio Rhythm: regular rhythm Heart sounds: S1 normal heart sound present and S2 normal heart sound present GI Inspection: Yes normal to inspection Palpation (GI): Soft to palpation Percussion: Yes normal to percussion Auscultation: normal bowel sounds Coding Level of Care Code Est Pt Prev Care >65y(96878) Diagnoses Osteoporosis M81.0 HTN (hypertension) I10 Annual physical exam Z00.00 Additional Codes AUGUSTINA-7 Assessment Billing - AUGUSTINA-7 Assessment Tool: AUGUSTINA-7 Assessment 90249 ([id number]) PHQ-9 - 58422 - PHQ-9 Billing: Yes ([id number]) Assessment & Plan Assessment & Plan (1) Osteoporosis: Comment: DEXA 01/2023 T score -2.9 L spine, patient declined treatment Code(s): M81.0 - Age-related osteoporosis without current pathological fracture Category: Medical Plan: Continue vitamin-D supplement weight-bearing exercises repeat DEXA (2) HTN (hypertension): Code(s): I10 - Essential (primary) hypertension Category: Medical Plan: Continue current medications (3) Annual physical exam: Code(s): Z00.00 - Encounter for general adult medical examination without abnormal findings Category: Medical Plan: Well-balanced diet regular physical activity discussed with the patient she is up-to-date with the mammogram and colonoscopy Orders: Orders Comprehensive [place]. Panel Fast Today E55.9 - Vitamin D deficiency, unspecified, I10 - Essential (primary) hypertension, M81.0 - Age-related osteoporosis without current pathological fracture Complete Blood Count Auto Diff 1 Year I10 - Essential (primary) hypertension, M81.0 - Age-related osteoporosis without current pathological fracture, Z00.00 - Encounter for general adult medical examination without abnormal findings Complete Blood Count Auto Diff Today E55.9 - Vitamin D deficiency, unspecified, I10 - Essential (primary) hypertension, M81.0 - Age-related osteoporosis without current pathological fracture Vitamin D 25-OH Total Today E55.9 - Vitamin D deficiency, unspecified, I10 - Essential (primary) hypertension, M81.0 - Age-related osteoporosis without current pathological fracture TSH reflex Free T4 Today E55.9 - Vitamin D deficiency, unspecified, I10 - Essential (primary) hypertension, M81.0 - Age-related osteoporosis without current pathological fracture XR DEXA axial skeleton Today E55.9 - Vitamin D deficiency, unspecified, I10 - Essential (primary) hypertension, M81.0 - Age-related osteoporosis without current pathological fracture Comprehensive [place]. Panel Fast 1 Year I10 - Essential (primary) hypertension, M81.0 - Age-related osteoporosis without current pathological fracture, Z00.00 - Encounter for general adult medical examination without abnormal findings Lipid Panel 1 Year I10 - Essential (primary) hypertension, M81.0 - Age-related osteoporosis without current pathological fracture, Z00.00 - Encounter for general adult medical examination without abnormal findings
--- OUTSIDE RECORDS SUMMARY | 2025-02-18 12:50 | XMS_ITS | Data Portability ---
Author Organization [facility] Patient Home Address [address] [place] [address] Assessment No assessment recorded. Plan of Treatment Reminders Order Date Submit Date Provider Last Modified By Organization Details Last Modified Time Details Appointments None recorded. Lab TSH + free T4, serum 2017 IZABEL Not available 10:13:18 CMP, serum or plasma 2017 IZABEL Not available 8 10:13:18 CBC 2017 IZABEL Not available 8 10:13:18 vitamin D, 25-hydrox y, total, serum 2017 IZABEL Not available 8 10:13:18 Referral None recorded. Procedures None recorded. Surgeries None recorded. Imaging None recorded. Medication Orders zolpidem 5 mg tablet 2017 INTERFACE [id number], [address] [facility], [place], [address], 8 13:59:07 Patient TargetsNo targets recorded. Patient Instructions Encounter Date Encounter Id Patient Instructions Last Modified By Organization Details Last Modified Time 05/22/2018 [id number] insomnia: care instructions mason Not available 05/22/2018 13:59:04 sleep hygiene mason Not available 14:25:26 Reason for Referral None Reported. Results Created Date Observation Date Name Description Value Unit Range Abnormal Flag Note LastModifiedBy Organization Detail LastModifiedTime Result Notes None recorded. Problems Name Problem SNOMED Code Status Onset Date Resolution Date Notes Provider Name and Address Organization Details Recorded Time Anxiety 81433661 Active 2017 Cathykevin Walker [facility] Internal [facility] 8 08:24:01 Diffuse spasm of esophagus 05497701 Active 2017 Cathykevin Walker [facility] 8 08:24:25 Essential hypertension 41162507 Active 2017 [facility] 8 08:24:32 Problem Notes None recorded. Procedures Surgical History Date Name Laterality Status Provider Name and Address Organization Details Recorded Time 008 Colonoscopy completed [facility] 05/22/2018 08:25:02 Tonsillectomy completed Samantha yates NP, [address] [place] [address], [phone], [facility] 05/22/2018 13:50:05 Partial Hysterectomy completed Samantha Hernandez NP, [address], [address], [facility] 05/22/2018 13:50:30 Imaging Results None recorded. Procedure Notes None recorded. Medical Equipment None Reported. Allergies No known drug allergies Medications Name Sig Start Date Stop Date Status Note LastModified by Organization Details LastModified Time doxycycline hyclate 100 mg capsule 05/22 completed Not Available Not Available Not Available betamethason e, augmented 0.05 % topical cream 05/22 completed Not Available Not Available Not Available diltiazem ER 120 mg capsule,24 hr,extended release TAKE ONE CAPSULE BY MOUTH ONCE A DAY 2017 active Not Available Not Available Not Avai lable mupirocin 2 % topical ointment 05/22 completed Not Available Not Available Not Available zolpidem 5 mg tablet Take 1 tablet every day by oral route. 2017 active Not Available Not Available Not Avai lable lisinopril 2.5 mg tablet TAKE 1 TABLET EVERY DAY 2017 active Not Available Not Available Not Avai lable Fluarix Quad [id number] (PF) 60 mcg (15 mcg x 4)/0.5 mL IM syringe 05/22 completed Not Available Not Available Not Available Vitals Date Recorded Body weight Body mass index (BMI) Body height Heart rate Oxygen saturation Oxygen saturation in Arterial blood by Pulse oximetry Systolic And Diastolic Provider Name and Address Organization Details Last Updated DateTime 8 08927.6 5 g 20.8 kg/m2 168.28 cm 85 /min 96 % 96 % 116/64 mm[Hg] Cathy Falconflako [facility] 8 13:35:03 Social History Question Answer Notes LastModified by Organizat ion Details LastModified Time Tobacco Smoking Status Never Smoker Not Available [facility] 06/16/2020 03:36:24 What Was The Date Of Your Most Recent Tobacco Screening? 05/22/2018 [id number] Information not available 06/16/2020 Sex: Unknown Functional Status None recorded. Mental Status None recorded. Family History Relationship Description Onset Age of this Age Resolved Age Notes LastModified by Organization Details LastModified Time Mother Degenerative disorder of macula eskawski Not available 2017 13:38:00 Father Malignant lymphoma 57 htn eskawski Not available 2017 13:49:50 Medical History Condition Response Coronary Artery Disease N Gout N Kidney Stones N Blood Diseases N Hyperthyroidism N Blood Transfusion N Breast Cancer N COPD N Depression N Lung Disease N Hypothyroidism N Defects or Inherited Disease N Difficulty Swallowing N Anesthesia Complications Y Anxiety Disorder Y Muscle, Joint, or Bone Problems N Obesity N Vision or Eye Problems N Arthritis N Polyps N Cancer N Stroke N Endometriosis Y Bladder or Kidney Problems N High Cholesterol N Liver Disease N Headaches Y Fibromyalgia N Kidney Disease N Allergies/Hayfever Y Heart Problems N Hospitalizations N Thyroid Problems N GI Problems Y Eating Disorder N Anemia N Constipation Y Mental Illness N Diabetes N Ovarian Cancer N Seizures/Epilepsy N Tuberculosis N Congestive Heart Failure (CHF) N Eczema N Abuse/Domestic Violence N Diverticulitis N Asthma N Reflux/GERD N Hepatitis N Heart Disease N Pulmonary Embolism N Hypertension Y Chicken Pox Y Autism Spectrum Disorder (ASD) N Osteoporosis N Thrombophilias N Gynecological HistoryNo gynecological history recorded. Obstetrics History GPAL:G 0 P 0 0 0 0 Past Encounters Encounter ID Performer Location Encounter Start Date Encounter Closed Date Diagnosis/Indication Diagnosis SNOMED-CT Code Diagnosis ICD10 Code Diagnosis Note [id number] DO [facility] [address] [facility],[place] [address] 05/22/2018 13:29:28 05/23/2018 08:13:20 Adult health examination 851410719 Z00.00 Active or passive immunization 517171714 Z23 Pt. to get flu vaccina at pharmacy Initial insomnia 5653052 8 G47.00 use ambien for 2 weeks to develop pattern sleep, then D/C and use prn Essential hypertension 73810882 I10 stable Diffuse sp asm of esophagus 79655682 K22.4 well controlled Anxiety 48247150 F41.9 Health Concerns Section Related Observation LastModified by Organization Detai ls LastModified Time None Recorded Concern Status LastModified by Organization Details LastModified Time None Recorded Advance Directives Directive None Recorded Payers Insurance Date Sequence Insurance Name Policy Number Policy Collier Covered Member ID Collier Member ID Guarantor Name 05/22/2018 1 SELVIN (PPO) [id number] Amanda Gutierres [id number] Amanda Gutierres Notes Date Note Type Note Provider Name a nd Address Organization Details Recorded Time 8 text/html Annual WellnessReported bypatient.Diet and Nutrition:healthy diet Fracture Risk:no history of fractures; no recent explained fracture; no sudden unexplained fractures; no previous musculoskeletal injuries Physical Activity:exercises on a regular basis; good physical condition Additional Lifestyle Factors:no tobacco use; drinks alcohol (mild-moderate) Depression Risk:never feels sad, empty, or tearful; no loss of interest in activities; no significant changes in weight; no agitation; no loss of energy; no feelings of worthlessness or guilt; no thoughts of suicide; no history of depression; no history of mood disorders;sleep disturbances or insomnia Hearing:no loss of hearing Vision:no vision problems Has colonoscopy upcoming Will schedule routine eye exam C/O insomnia X months, tried melatonin, benadryl Samantha Hernandez NP, [address] [facility], [place], [address], [facility] 05/22/2018 14:27:01 OBGyn Episode No OBEpisode recorded.
--- OUTSIDE RECORDS SUMMARY | 2025-02-18 12:50 | XMS_ITS | Patient Health Record ---
Author Organization [facility] Address [address] [place] [address] Care Team Providers Care Sociology Professor Name Role Phone Mary PEREZ, Samantha Primary Care Provider Unavail able Randall Natanael Unavailable [phone] Reason For Referral No Information Medications Medication SIG (Take, Route, Fr equency, Duration) Notes Start Date End Date Status Lisinopril 2.5 MG 1 tablet Orally Once a day Active dilTIAZem HCl 120 MG 1 capsule Orally Once a day Active Immunizations Vaccine Route Administration Date Status Comme nts Influenza Unknown 05/09/2018 Administered Social History Alcohol Screen Question Answer Notes Did you have a drink contain ing alcohol in the past year? Yes How often did you have a dri nk containing alcohol in the past year? 2 to 4 times a month (2 points) How many drinks did you have on a typical day when you were drinking in the past year? 1 or 2 drinks (0 point) How often did you have 6 or more drinks on one occasion in the past year? Never (0 point) Points 2 Interpretation Negative Section Notes: Nonsmoker; no sig alcohol-oc casional wine with dinner Nonsmoker; no sig alcohol Problems Problem Type SNOMED Code ICD Code Onset Dates Problem Status W/U Status Risk Notes Problem Gallstones (574.20) Active confirmed Problem Epigastric pain (24607819) Abdominal pain, epigastric (789.06) Active confirmed Plan Of Treatment Pending Test Test Name Order Date GI BIOPSY 06/15/2018 NUC HIDA SCAN 01/20/2014 Future Test Test Name Order Date UPPER GI ENDOSCOPY 01/17/2014 Insurance Providers Payer Name Payer Address Payer Phone Subscriber Number Group Number Insured Name Patient Relationship to Insured Coverage Start Date Coverage End Date [facility] [address] [place] [address] [phone] [id number] ROBIN NOEL Self - patient is the insured Medical (General) History Medical History History ICD Code Colonoscopy 05/19/2008--neg. 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
== END 2025-02-18 12:17 | disposition home or self-care (01) ==
LOC: HO.HMCC 11:53
PROVIDERS: PCP Internal Medicine; Visit Provider Internal Medicine
DX: M81.0 Age-related osteoporosis without current pathological fracture (principal); I10 Essential (primary) hypertension; Z00.00 Encounter for general adult medical examination without abnormal findings

== ENCOUNTER → 2025-02-18 11:52 | Outpatient (BNVA) | payer MEDICARE, SELFPAY | PROVIDERS: PCP Internal Medicine; Visit Provider Internal Medicine | DX: Z00.00 Encounter for general adult medical examination without abnormal findings (principal); M81.0 Age-related osteoporosis without current pathological fracture; I10 Essential (primary) hypertension; E55.9 Vitamin D deficiency, unspecified | CPT/HCPCS: 96127; 99397 ==

== ENCOUNTER 2025-03-03 08:12 | Outpatient (REF) | payer MEDICARE, SELFPAY ==
--- OUTSIDE RECORDS SUMMARY | 2025-03-03 08:16 | XMS_ITS | Patient Health Record ---
Author Organization [facility] Address [address] [place] [address] Care Team Providers Care Teacher Of The Visually Impaired Name Role Phone Mary PEREZ, Samantha Primary Care Provider Unavail able Randall Natanael Unavailable [phone] Reason For Referral No Information Medications Medication [...] Gallstones (574.20) Active confirmed Problem Epigastric pain (36944704) Abdominal pain, epigastric (789.06) Active confirmed Plan Of Treatment Pending Test Test Name Order Date GI BIOPSY 06/15/2018 NUC HIDA SCAN 01/20/2014 Future Test Test Name Order Date UPPER GI ENDOSCOPY 01/17/2014 Insurance Providers Payer Name Payer Address Payer Phone Subscriber Number Group Number Insured Name Patient Relationship to Insured Coverage Start Date Coverage End Date [facility] [address] [place] [address] [id number] ROBIN NOEL Self - patient is the insured Medical (General) History Medical History History ICD Code Colonoscopy 05/19/2008--neg. 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
--- OUTSIDE RECORDS SUMMARY | 2025-03-03 08:16 | XMS_ITS | Data Portability ---
Author Organization [facility] Telehealth Patient Home Address [address] [place] [address] Assessment No assessment recorded. Plan of Treatment [...] zolpidem 5 mg tablet 2017 INTERFACE [id number], [address] [facility], [place], [address], 8 13:59:07 Patient TargetsNo targets recorded. Patient [...] and Address Organization Details Recorded Time Anxiety 98297433 Active 2017 Cathykevin Walker [facility] Internal [facility] 8 08:24:01 Diffuse spasm of esophagus 87142583 Active 2017 Cathykevin Walker [facility] 8 08:24:25 Essential hypertension 60685685 [facility] 8 08:24:32 Problem Notes None recorded. Procedures Surgical History Date Name Laterality Status Provider Name and Address Organization Details Recorded Time 008 Colonoscopy completed [facility] 05/22/2018 08:25:02 Tonsillectomy completed Samantha yates NP, [address] [place] [address], [address], [facility] 05/22/2018 13:50:05 Partial Hysterectomy completed Samantha Hernandez NP, [address], [address], [facility] 05/22/2018 13:50:30 Imaging Results None recorded. Procedure [...] Not Available Not Avai lable Fluarix Quad [id number] (PF) 60 mcg (15 mcg x 4)/0.5 mL IM syringe 05/22 completed Not Available Not Available Not Available Vitals Date Recorded Body weight Body mass index (BMI) Body height Heart rate Oxygen saturation Oxygen saturation in Arterial blood by Pulse oximetry Systolic And Diastolic Provider Name and Address Organization Details Last Updated DateTime 8 37551.6 5 g 20.8 kg/m2 168.28 cm 85 /min 96 % 96 % 116/64 mm[Hg] Cathy Falconflako [facility] 8 13:35:03 Social History Question Answer Notes LastModified by Organizat ion Details LastModified Time Tobacco Smoking Status Never Smoker Not Available [facility] 06/16/2020 03:36:24 What Was The Date Of Your Most Recent Tobacco Screening? 05/22/2018 [id number] Information not available 06/16/2020 Sex: Unknown Functional [...] N Blood Transfusion N Breast Cancer N Hypothyroidism N Lung Disease N Depression N COPD N Defects or Inherited Disease N Difficulty Swallowing N Anesthesia Complications Y Anxiety Disorder Y Muscle, Joint, or Bone Problems N Obesity N Vision or Eye Problems N Arthritis N Polyps N Cancer N Stroke N Endometriosis Y Bladder or Kidney Problems N High Cholesterol N Liver Disease N Fibromyalgia N Headaches Y Kidney Disease N Allergies/Hayfever Y Heart Problems [...] [id number] DO [facility] [address] [facility],[place] [address] 05/22/2018 13:29:28 05/23/2018 08:13:20 Adult health examination 340810678 Z00.00 Active or passive immunization 621421799 Z23 Pt. to get flu vaccina at pharmacy Initial insomnia 9780289 8 G47.00 use ambien for 2 weeks to develop pattern sleep, then D/C and use prn Essential hypertension 16783705 I10 stable Diffuse sp asm of esophagus 63147534 K22.4 well controlled Anxiety 31464328 F41.9 Health Concerns Section Related Observation LastModified by Organization Detai ls LastModified Time None Recorded Concern Status LastModified by Organization Details LastModified Time None Recorded Advance Directives Directive None Recorded Payers Insurance Date Sequence Insurance Name Policy Number Policy Collier Covered Member ID Collier Member ID Guarantor Name 05/22/2018 1 SELVIN (PPO) [id number] Amanda Gutierres [id number] Amanda Gutierres Notes Date Note Type [...] melatonin, benadryl Samantha Hernandez NP, [address] [facility], [place], [address], [facility] 05/22/2018 14:27:01 OBGyn Episode No OBEpisode recorded.
[2025-03-03 10:11] LABS: MANUAL DIFF FLAG NO
[2025-03-03 10:24] LABS: Hematocrit 41.4 % (37.0-47.0); Hemoglobin 14.4 g/dl (12.0-16.0); Imm Gran Abs Auto 0.01 X10*3/uL (0.00-0.03); Imm Gran Pct Auto 0.2 % (0.0-0.4); Lymphocytes Absolute Auto 1.5 X10*3/uL (1.2-4.9); Mean Corpuscular HGB Conc 34.8 g/dl (31.0-35.0); Mean Corpuscular Hemoglobin 33.2 pg (27.0-33.0); Mean Corpuscular Volume 95.4 fL (80.0-98.0); NRBC Abs Auto 0.000 X10*3/uL (0.0-0.012); NRBC Pct Auto 0.0 /100WBC (0.0-0.2); Platelet Count 180 X10*3/uL (160-400); Red Blood Count 4.34 X10*6/uL (4.20-5.50); White Blood Count 4.3 X10*3/uL (4.8-10.8)
[2025-03-03 10:54] LABS: Alanine Aminotransferase 30 U/L (0-31); Albumin Level 4.2 g/dL (3.5-5.0); Alkaline Phosphatase 73 U/L (39-117); Anion Gap 11 (12-20); Aspartate Amino Transferase 25 U/L (5-31); Blood Urea Nitrogen 17 mg/dL (9-16); Calcium 8.7 mg/dL (8.4-10.2); Carbon Dioxide 29 mmol/L (22-29); Chloride 108 mmol/L (96-108); Cholesterol 191 mg/dL (<200); Estimated Glomerular Filt Rate > 60; HDL Cholesterol 73 mg/dL (>40); Potassium 4.2 mmol/L (3.3-5.1); Sodium 144 mmol/L (135-145); Total Protein 6.6 g/dL (6.5-8.0); Triglycerides 82 mg/dL (<150)
== END 2025-03-03 08:13 | disposition home or self-care (01) ==
LOC: HO.10HDL 08:12
PROVIDERS: Visit Provider Internal Medicine
DX: Z00.00 Encounter for general adult medical examination without abnormal findings (principal); M81.0 Age-related osteoporosis without current pathological fracture; E55.9 Vitamin D deficiency, unspecified; I10 Essential (primary) hypertension
CPT/HCPCS: 36415; 80053; 80061; 82306; 84443; 85025

== ENCOUNTER 2025-05-28 09:00 | Outpatient (REF) | payer MEDICARE, SELFPAY ==
--- NOTE | ~2025-05-28 | MM_ITS ---
EXAMINATION: DXA BONE DENSITY AXIAL HISTORY: M81.0 - Age-related osteoporosis without current pathological fracture TECHNIQUE: Geomagic Dual energy absorptiometry (DEXA) of the lumbar spine, total left hip, and femoral neck was performed. COMPARISON: Comparison is made with the prior examination dated 01/24/2023. FINDINGS: The bone mineral density of the lumbar spine is 0.836 g/cm2, corresponding to a T-score of -2.9, and a Z-score of -1.0. This is indicative of osteoporosis. This represents a BMD change of 0.6% compared to the prior exam. This is not statistically significant. The bone mineral density of the left total hip is 0.791 g/cm2, corresponding to a T-score of -1.7, and a Z-score of 0.0. This is indicative of osteopenia. This represents a BMD change of 1.8% compared to the prior exam. This is not statistically significant. The bone mineral density of the left femoral neck is 0.728 g/cm2, corresponding to a T-score of -2.2, and a Z-score of -0.3. This is indicative of osteopenia. This represents a BMD change of 0.7% compared to the prior exam. MM/XR DEXA axial skeleton IMPRESSION: Based on bone mineral density, and according to World Health Organization (WHO) criteria, the diagnosis is consistent with osteoporosis. Statistically, 68% of repeat scans fall within 1 SD (+/- 0.010 g/cm2 for AP spine L1-L4) and 1 SD (+/- 0.012 g/cm2 for femur total) FRAX is a trademark of the [employer]'s [place] [facility] [employer], a World Health Organization (WHO) Collaborating Center. Electronically signed by: Natanael Gannon MD 05/28/2025 09:36 AM EDT
--- OUTSIDE RECORDS SUMMARY | 2025-05-28 09:48 | XMS_ITS | Patient Health Record ---
Author Organization [facility] Address [address] [place] [address] Care Team Providers Care Manager Food Beverage Name Role Phone Mary PEREZ, Samantha Primary Care Provider Unavail able PereiraNatanael Unavailable [phone] Reason For Referral No Information Medications Medication [...] Status W/U Status Risk Notes Problem Gallstones (340995459) Gallstones (574.20) Active confirmed Problem Epigastric pain (97097813) Abdominal pain, epigastric (789.06) Active confirmed Plan Of Treatment Pending Test Test Name Order Date GI BIOPSY 06/15/2018 NUC HIDA SCAN 01/20/2014 Future Test Test Name Order Date UPPER GI ENDOSCOPY 01/17/2014 Insurance Providers Payer Name Payer Address Payer Phone Subscriber Number Group Number Insured Name Patient Relationship to Insured Coverage Start Date Coverage End Date [facility] [address] [address] [place] [address] [phone] [id number] ROBIN NOEL Self - patient is the insured Medical (General) History Medical History History ICD Code Colonoscopy 05/19/2008--neg. 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
== END 2025-05-28 09:01 | disposition home or self-care (01) ==
LOC: HO.MAMMO 09:00
PROVIDERS: PCP Internal Medicine; Visit Provider Internal Medicine
DX: M81.0 Age-related osteoporosis without current pathological fracture (principal); E55.9 Vitamin D deficiency, unspecified; I10 Essential (primary) hypertension
CPT/HCPCS: 77080

== ENCOUNTER → 2025-05-28 09:15 | Outpatient (BNV) | payer MEDICARE, SELFPAY | PROVIDERS: PCP Internal Medicine; Visit Provider Radiology Diagnostic Radiology | DX: E28.39 Other primary ovarian failure (principal) | CPT/HCPCS: 77080 ==

== ENCOUNTER 2025-06-18 10:47 | Outpatient (REF) | payer MEDICARE, SELFPAY ==
--- NOTE | ~2025-06-18 | XR_ITS ---
EXAMINATION: XR BILATERAL HIPS WITH AP PELVIS CLINICAL INFORMATION: M25.551 - Pain in right hip COMPARISON: None available. TECHNIQUE: AP view pelvis. AP and oblique views both hips. FINDINGS: Bony pelvis is intact. Coxofemoral joints are intact with normal alignment. Mild degenerative changes in the hips, sacroiliac joints and symphysis pubis. Marginal osteophyte formation and syndesmophyte formation at L4-5 and L5-S1. No lytic or blastic lesions. No soft tissue calcifications. No vascular calcifications. XR/XR hip BI w PEL1V IMPRESSION: Mild osteoarthrosis/osteoarthritis both hips. Spondylosis L4-5 and L5-S1. Electronically signed by: Izaiah Huang MD 06/18/2025 12:36 PM EST
== END 2025-06-18 10:48 | disposition home or self-care (01) ==
LOC: HO.HMGCX 10:47
PROVIDERS: PCP Internal Medicine; Visit Provider Internal Medicine
DX: M81.0 Age-related osteoporosis without current pathological fracture (principal); I10 Essential (primary) hypertension; M25.551 Pain in right hip; Z79.899 Other long term (current) drug therapy
CPT/HCPCS: 73521; 96127; 99212

== ENCOUNTER 2025-06-18 10:47 | Outpatient (AMB) | payer MEDICARE, SELFPAY ==
[2025-06-18 11:07] VITALS: BP 118/70; PULSE 74; RESP 16; TEMP 36.8; O2SAT 97; BMI 21.0
--- NOTE | 2025-06-18 11:07 | MHC.PC.OV ---
Vital Signs 06/18/25 11:07 Height 5 ft 7 in Weight 134 lb BMI 21.0 BP 118/70 Blood Pressure Location Lt brachial Position Sitting Respiration 16 Pulse 74 Pulse Source Pulse Oximeter Temp 98.3 F Temp Source Oral Pulse Oximetry (%) 97 Oxygen Delivery Method Room Air Intake Visit Reasons: Follow up to discuss Bone density results Intake Note: Pt is here today for a follow up visit to discuss density results. Allergies azithromycin Adverse Reaction (Unknown, Verified 06/18/25 11:13) upset stomach Medication List - Last Reconciled 06/18/25 by Tona Marte MD alendronate (Fosamax) 70 mg PO QWEEK diltiazem HCl ER (Tiadylt ER) 120 mg PO DAILY lisinopril 2.5 mg PO DAILY Tobacco use date assessed: 06/18/25 Fall risk assessment: No Falls in past year Last assessed Fall Risk: 06/18/25 Dental Screening Dental Screen Date: 02/18/25 HPI Follow up to discuss Bone density results HPI Details Patient presents for a follow-up of DEXA. It is consistent with osteoporosis patient is started taking Fosamax this morning. She denies any side effects so far patient has been taking vitamin D3 and exercising regularly. She complains of chronic right groin pain worse after walking longer distance. Patient denies pain at night. She denies weakness or numbness in extremities or lower back pain. Hypertension is controlled on current medications [facility] Medical History (Updated 06/18/25 @ 13:19 by Tona Marte MD) Osteoporosis Vitamin D deficiency Shoulder pain, right Neck pain on right side Insomnia Annual physical exam Esophageal spasm Mixed basal-squamous cell carcinoma HTN (hypertension) Surgical History S/P MAYELA (total abdominal hysterectomy) H/O colonoscopy Family History Father Hypertension Lymphoma Mother Hypertension Brother Mental health disorder Substance use disorder Social History Housing: House Alcohol intake: current Alcohol intake frequency: a few times a week Patient Tobacco Use Status: Never used Tobacco e-Cigarette/Vaping Use: Never Used service: No Current occupational status: retired Cognitive needs: No Hearing needs: No Vision needs: Yes Questionnaire PHQ-9 Over the last 2 weeks, how often have you been bothered by any of the following problems? 1. Little interest or pleasure in doing things: not at all 2. Feeling down, depressed, or hopeless: not at all 3. Trouble falling or staying asleep, or sleeping too much: several days 4. Feeling tired or having little energy: several days 5. Poor appetite or overeating: not at all 6. Feeling bad about yourself - or that you are a failure or have let yourself or your family down: not at all 7. Trouble concentrating on things, such as reading the newspaper or watching television: not at all 8. Moving or speaking so slowly that other people could have noticed. Or the opposite - being so fidgety or restless that you have been moving around a lot more than usual: not at all 9. Thoughts that you would be better off or of hurting yourself in some way: not at all Total score: 2 Depression Screening Interpretation: Negative Depression Screening Done: Yes Source: Developed by Drs. Natanael Mederos, Anupama Griffiths, Jamie Suh and colleagues, with an educational anca from [employer]. Thrive Questionnaire Date Thrive assessed: 02/13/25 I am a: Patient What is your living situation today?: I have a steady place to live Within the past 12 months, did the food you bought not last and you didn't have the money to get more?: Never true Within the past 12 months, did you worry whether your food would run out before you got money to buy more?: Never true Do you have trouble paying for medicines?: No Do you have trouble getting transportation to medical appointments?: No Do you have trouble paying your heating and electricity bill?: No Do you have trouble taking care of your child, family member or friend?: No Do you have trouble with day-to-day activities such as bathing, preparing meals, shopping, managing finances, etc.?: No Are you currently unemployed and looking for a job?: No Are you interested in more education?: I choose not to answer this question Please select the resources that you would like help with: None Currently or been in a relationship where the following occur: I choose not to answer THRIVE Score: 0 AUGUSTINA-7 AMB Questionnaire AUGUSTINA-7 Date AUGUSTINA - 7 assessed: 02/18/25 Feeling nervous, anxious, or on edge: 2 = More than half the days Not being able to stop or control worryin = Not at all Worrying too much about different things: 1 = Several days Trouble relaxin = More than half the days Being so restless that it is hard to sit still: 0 = Not at all Becoming easily annoyed or irritable: 0 = Not at all Feeling afraid as if something awful might happen: 0 = Not at all Total AUGUSTINA-7 score (0-4 normal; 5-9 mild; 10-14 moderate; 15-21 severe): 5 Source: Developed by Drs. Natanael Mederos, Anupama Griffiths, Jamie Suh and colleagues, with an educational anca from [employer]. Review of Systems Const All systems reviewed & are unremarkable except as noted in HPI and below Eyes Reports no additional complaints ENT Reports no additional complaints Card Reports no additional complaints Resp Reports no additional complaints GI Reports no additional complaints Physical exam (Primary Care) Vital Signs: Last Vital Signs Temp 98.3 F 06/18/25 11:07 Pulse 74 06/18/25 11:07 Resp 16 06/18/25 11:07 BP 118/70 06/18/25 11:07 Pulse Ox 97 06/18/25 11:07 Oxygen Delivery Method Room Air 06/18/25 11:07 BMI result Body Mass Index 21.0 Tobacco/Smoking Status: Tobacco use Status Tobacco use date assessed 06/18/25 06/18/25 11:14 Patient Tobacco Use Status Never used Tobacco 06/18/25 11:14 e-Cigarette/Vaping Use Never Used 06/18/25 11:08 PHQ-9: PHQ-9 Score PHQ-9: Total score 2 06/18/25 12:03 Depression Screening Interpretation: Negative Thrive Assessment: Date of Thrive Assessment Date Thrive assessed 02/13/25 06/18/25 11:08 Currently or been in a relationship where the following occur: I choose not to answer Const General: no acute distress HENMT Head: Yes normal to inspection Neck Neck: Yes supple Resp Effort & Inspection: normal respiratory effort Auscultation: clear to auscultation bilaterally Cardio Rhythm: regular rhythm Heart sounds: S1 normal heart sound present and S2 normal heart sound present Back/Spine/Pelvis Thoracic/Lumbar Spine: thoracic and lumbar spine normal to inspection Extrem Other: There is a slightly decreased range of motion in her right hip, straight leg rising 90 degrees bilaterally Coding Level of Care Code Est Pt Level 4 (43211) Diagnoses HTN (hypertension) I10 Right hip pain M25.551 Osteoporosis M81.0 Assessment & Plan Assessment & Plan (1) HTN (hypertension): Code(s): I10 - Essential (primary) hypertension Category: Medical Plan: Continue current medications (2) Right hip pain: Code(s): M25.551 - Pain in right hip Category: Medical Plan: Obtain x-ray of both hips and refer to physical therapy (3) Osteoporosis: Comment: DEXA 01/2023 T score -2.9 L spine, DEXA T score -2.9 L spine, Fosamax started June 2025 Code(s): M81.0 - Age-related osteoporosis without current pathological fracture Category: Medical Plan: Continue Fosamax vitamin D3 supplement and weight-bearing exercises and repeat DEXA in 2 years Orders: Orders PT Evaluation and Treatment Today M25.551 - Pain in right hip
--- OUTSIDE RECORDS SUMMARY | 2025-06-18 12:40 | XMS_ITS | Patient Health Record ---
Author Organization [facility] Address [address] [place] [address] Care Team Providers Care Manager Harbor Name Role Phone Mary PEREZ, Samantha Primary Care Provider Unavail able PereiraNatanael Unavailable [phone] Reason For Referral No Information Medications Medication [...] Status W/U Status Risk Notes Problem Gallstones (704921669) Gallstones (574.20) Active confirmed Problem Epigastric pain (40775451) Abdominal pain, epigastric (789.06) Active confirmed Plan Of Treatment Pending Test Test Name Order Date GI BIOPSY 06/15/2018 NUC HIDA SCAN 01/20/2014 Future Test Test Name Order Date UPPER GI ENDOSCOPY 01/17/2014 Insurance Providers Payer Name Payer Address Payer Phone Subscriber Number Group Number Insured Name Patient Relationship to Insured Coverage Start Date Coverage End Date [facility] [address] [address] [place] [address] [id number] ROBIN NOEL Self - patient is the insured Medical (General) History Medical History History ICD Code Colonoscopy 05/19/2008--neg. 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
--- OUTSIDE RECORDS SUMMARY | 2025-06-18 12:40 | XMS_ITS | Data Portability ---
Author Organization [facility] Patient Home Address [address] [place] [address] Assessment No assessment recorded. Plan of Treatment [...] zolpidem 5 mg tablet 2017 [facility]FACE [id number], [address] [facility] [place], [place], [address], 8 13:59:07 Patient TargetsNo targets recorded. Patient [...] and Address Organization Details Recorded Time Anxiety 50054794 Active 2017 Cathykevin Walker [facility] Internal [facility] 8 08:24:01 Diffuse spasm of esophagus 61500021 Active 2017 Cathykevin Walker [facility] 8 08:24:25 Essential hypertension 06667628 Active 2017 [facility] 8 08:24:32 Problem Notes None recorded. Procedures Surgical History Date Name Laterality Status Provider Name and Address Organization Details Recorded Time 008 Colonoscopy completed [facility] 05/22/2018 08:25:02 Tonsillectomy completed Samantha yates NP, [address] [place] [address], [phone], [facility] 05/22/2018 13:50:05 Partial Hysterectomy completed Samantha Hernandez NP, [address], [address], [facility] 05/22/2018 13:50:30 Imaging Results None recorded. [...] Not Available Not Avai lable Fluarix Quad [id number] (PF) 60 mcg (15 mcg x 4)/0.5 mL IM syringe 05/22 completed Not Available Not Available Not Available Vitals Date Recorded Body weight Body mass index (BMI) Body height Heart rate Oxygen saturation Oxygen saturation in Arterial blood by Pulse oximetry Systolic And Diastolic Provider Name and Address Organization Details Last Updated DateTime 8 63496.6 5 g 20.8 kg/m2 168.28 cm 85 /min 96 % 96 % 116/64 mm[Hg] Cathy Walker [place] Jose Enrique [facility] 8 13:35:03 Social History Question Answer Notes LastModified by Organizat ion Details LastModified Time Tobacco Smoking Status Never Smoker Not Available [facility] 06/16/2020 03:36:24 What Was The Date Of Your Most Recent Tobacco Screening? 05/22/2018 [id number] Information not available 06/16/2020 Sex: Unknown Functional [...] Stones N Blood Diseases N Hyperthyroidism N Breast Cancer N Blood Transfusion N Depression N COPD N Lung Disease N Hypothyroidism N Defects [...] Anemia N Constipation Y Mental Illness N Ovarian Cancer N Diabetes N Seizures/Epilepsy N Tuberculosis N Congestive Heart Failure (CHF) N Eczema N Diverticulitis N Abuse/Domestic Violence N Asthma N Reflux/GERD N Hepatitis N Heart Disease N Pulmonary Embolism N Hypertension Y Chicken Pox Y Autism Spectrum Disorder (ASD) N Osteoporosis N Thrombophilias N Gynecological HistoryNo gynecological history recorded. Obstetrics History GPAL:G 0 P 0 0 0 0 Past Encounters Encounter ID Performer Location Encounter Start Date Encounter Closed Date Diagnosis/Indication Diagnosis SNOMED-CT Code Diagnosis ICD10 Code Diagnosis IMO Codes Diagnosis Note [id number] DO [facility] [address] [facility],[place] [address] 05/22/2018 13:29:28 05/23/2018 08:13:20 Adult health examination 124450272 Z00.00 Active or passive immunization 886737327 Z23 Pt. to get flu vaccina at pharmacy Initial insomnia 4472673 8 G47.00 use ambien for 2 weeks to develop pattern sleep, then D/C and use prn Essential hypertension 15503792 I10 stable Diffuse sp asm of esophagus 10078698 K22.4 well controlled Anxiety 41175182 F41.9 Health Concerns Section Related Observation LastModified by Organization Detai ls LastModified Time None Recorded Concern Status LastModified by Organization Details LastModified Time None Recorded Advance Directives Directive None Recorded Payers Insurance Date Sequence Insurance Name Policy Number Policy Collier Covered Member ID Collier Member ID Guarantor Name 05/22/2018 1 SELVIN (PPO) [id number] Amanda Gutierres [id number] Amanda Gutierres Notes Date Note Type Note Provider Name a nd Address Organization Details Recorded Time 8 text/html Annual WellnessReported by PatientSocial/Behavio ral HistoryFor diet and nutrition, patient reportshealthy diet. For fracture risk, patient reportsno history of fractures,no recent explained fracture,no sudden unexplained fractures, andno previous musculoskeletal injuries. For physical activity, patient reportsexercises on a regular basisandgood physical condition. For additional lifestyle factors, patient reportsno tobacco useanddrinks alcohol (mild-moderate).Menta l Status:For depression risk, patient reportssleep disturbances or insomniabut reportsnever feels sad, empty, or tearful,no loss of interest in activities,no significant changes in weight,no agitation,no loss of energy,no feelings of worthlessness or guilt,no thoughts of suicide,no history of depression, andno history of mood disorders.Functional AbilityFor hearing, patient reportsno loss of hearing. For vision, patient reportsno vision problems. Has colonoscopy upcoming Will schedule routine eye exam C/O insomnia X months, tried melatonin, benadryl Samantha Hernandez NP, [address] [facility], [place], [address], [facility] 05/22/2018 14:27:01 OBGyn Episode No OBEpisode recorded.
== END 2025-06-18 13:19 | disposition home or self-care (01) ==
LOC: HO.HMCC 10:47
PROVIDERS: PCP Internal Medicine; Visit Provider Internal Medicine
DX: I10 Essential (primary) hypertension (principal); M25.551 Pain in right hip; M81.0 Age-related osteoporosis without current pathological fracture

== ENCOUNTER → 2025-06-18 12:04 | Outpatient (BNV) | payer MEDICARE, SELFPAY | PROVIDERS: PCP Internal Medicine; Visit Provider Radiology Diagnostic Radiology | DX: M16.0 Bilateral primary osteoarthritis of hip (principal) | CPT/HCPCS: 73521 ==

== ENCOUNTER 2025-07-04 15:30 | Outpatient (REF) | payer MEDICARE, SELFPAY ==
--- NOTE | ~2025-07-04 | XR_ITS ---
EXAMINATION: XR CHEST CLINICAL INFORMATION: R05.9 - Cough, unspecified COMPARISON: September 01, 2023 TECHNIQUE: 2 views of the chest were obtained. FINDINGS: The lungs are grossly clear. Heart and mediastinal contours are unremarkable. There is no pleural effusion. XR/XR chest 2V IMPRESSION: No acute disease. Electronically signed by: Jerrell Saeed MD 07/04/2025 04:12 PM [facility] [place]
== END 2025-07-04 15:31 | disposition home or self-care (01) ==
LOC: HO.HMGCX 15:30
PROVIDERS: PCP Internal Medicine; Visit Provider Physician Assistant
DX: J22 Unspecified acute lower respiratory infection (principal); R05.9 Cough, unspecified
CPT/HCPCS: 71046; 99212

== ENCOUNTER 2025-07-04 15:30 | Outpatient (AMB) | payer MEDICARE, SELFPAY ==
--- OUTSIDE RECORDS SUMMARY | 2025-07-04 15:34 | XMS_ITS | Data Portability ---
Author Organization [facility] Patient Home Address [address] [place] [address] Assessment No assessment recorded. Plan of Treatment [...] zolpidem 5 mg tablet 2017 INTERFACE [id number], [address] [facility], [place], [address], 8 13:59:07 Patient TargetsNo targets recorded. Patient [...] and Address Organization Details Recorded Time Anxiety 22379233 Active 2017 Cathykevin Walker [facility] Internal [facility] 8 08:24:01 Diffuse spasm of esophagus 89999938 Active 2017 Cathykevin Walker [facility] 8 08:24:25 Essential hypertension 56804072 Active 2017 [place] [facility] 8 08:24:32 Problem Notes None recorded. Procedures Surgical History Date Name Laterality Status Provider Name and Address Organization Details Recorded Time 008 Colonoscopy completed [facility] 05/22/2018 08:25:02 Tonsillectomy completed Samantha yates NP, [address] [place] [address], [phone], [facility] 05/22/2018 13:50:05 Partial Hysterectomy completed Samantha Hernandez NP, [address], [address], [facility] 05/22/2018 13:50:30 Imaging Results None recorded. Procedure [...] Not Available Not Avai lable Fluarix Quad [id number] (PF) 60 mcg (15 mcg x 4)/0.5 mL IM syringe 05/22 completed Not Available Not Available Not Available Vitals Date Recorded Body weight Body mass index (BMI) Body height Heart rate Oxygen saturation Systolic And Diastolic Provider Name and Address Organization Details Last Updated DateTime 8 88084.6 5 g 20.8 kg/m2 168.28 cm 85 /min 96 % 116/64 mm[Hg] [facility] 8 13:35:03 Social History Question Answer Notes LastModified by Organizat ion Details LastModified Time Tobacco Smoking Status Never Smoker Not Available [facility] 06/16/2020 03:36:24 What Was The Date Of Your Most Recent Tobacco Screening? 05/22/2018 [id number] Information not available 06/16/2020 Sex: Unknown Functional Status None recorded. Mental Status None recorded. Family History Relationship Description Onset Age of this Age Resolved Age Notes LastModified by Organization Details LastModified Time Mother Degenerative disorder of macula bevwski Not available 2017 13:38:00 Father Malignant lymphoma 57 htn eskawski Not available 2017 13:49:50 Medical History Condition Response Coronary Artery Disease N Gout N Blood Diseases N Kidney Stones N Hyperthyroidism N Breast Cancer N Blood Transfusion N Hypothyroidism N Lung Disease N Depression [...] [id number] DO [facility] [address] [facility] [address] 05/22/2018 13:29:28 05/23/2018 08:13:20 Adult health examination 210665770 Z00.00 Active or passive immunization 017506212 Z23 Pt. to get flu vaccina at pharmacy Initial insomnia 8713817 8 G47.00 use ambien for 2 weeks to develop pattern sleep, then D/C and use prn Essential hypertension 40219273 I10 stable Diffuse sp asm of esophagus 34755389 K22.4 well controlled Anxiety 88276682 F41.9 Health Concerns Section Related Observation LastModified by Organization Detai ls LastModified Time None Recorded Concern Status LastModified by Organization Details LastModified Time None Recorded Advance Directives Directive None Recorded Payers Insurance Date Sequence Insurance Name Policy Number Policy Collier Covered Member ID Collier Member ID Guarantor Name 05/22/2018 1 SELVIN (PPO) [id number] Amanda Gutierres [id number] Amanda Gutierres Notes Date Note Type [...] melatonin, benadryl Samantha Hernandez NP, [address] [facility], [place], [address], [facility] 05/22/2018 14:27:01 OBGyn Episode No OBEpisode recorded.
--- OUTSIDE RECORDS SUMMARY | 2025-07-04 15:35 | XMS_ITS | Patient Health Record ---
Author Organization [facility] Address [address] [place] [address] Care Team Providers Care Service Establishment Attendant Name Role Phone Mary PEREZ, Samantha Primary Care Provider Unavail able PereiraNatanael Unavailable [phone] Reason For Referral No Information Medications Medication SIG (Take, Route, Frequency, Duration) Notes Start Date End Date Status Lisinopril 2.5 MG Tablet 1 tablet Orally Once a day Active dilTIAZem HCl 120 MG Capsule Extended Release 12 Hour 1 capsule Orally Once a day Active Immunizations Vaccine Route Administration Date Status Comme nts Influenza Unknown 05/09/2018 Administered Social History Social History Drugs/Alcohol: Social Info Question Answer Notes Alcohol Screen Did you have a drink containing alcohol in the past year? Yes How often did you have a drink containing alcohol in the past year? 2 to 4 times a month (2 points) How many drinks did you have on a typical day when you were drinking in the past year? 1 or 2 drinks (0 point) How often did you have 6 or more drinks on one occasion in the past year? Never (0 point) Points 2 Interpretation Negative Additional Details Category Social Info Options Details Miscellaneous: Marital status: Occupation: retired Libraria n at [employer] Section Notes: Nonsmoker; no sig alcohol Nonsmoker; no sig alcohol-oc casional wine with dinner Problems Problem Type SNOMED Code ICD Code Onset Dates Problem Status W/U Status Risk Notes Problem Gallstones (830408678) Gallstones (574.20) Active confirmed Problem Epigastric pain (99210050) Abdominal pain, epigastric (789.06) Active confirmed Plan Of Treatment Pending Test Test Name Order Date GI BIOPSY 06/15/2018 NUC HIDA SCAN 01/20/2014 Future Test Test Name Order Date UPPER GI ENDOSCOPY 01/17/2014 Insurance Providers Payer Name Payer Address Payer Phone Subscriber Number Group Number Insured Name Patient Relationship to Insured Coverage Start Date Coverage End Date [facility] [address] [address] [place] [address] [id number] ROBIN NOEL Self - patient is the insured Medical (General) History Medical History History ICD Code Colonoscopy 05/19/2008--neg. 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
--- NOTE | 2025-07-04 15:40 | MHC.OFFWIV ---
Intake Vital Signs 07/04/25 15:41 Height 5 ft 7 in Weight 133 lb BMI 20.8 BP 128/72 Blood Pressure Location Lt brachial Position Sitting Pulse 78 Pulse Source Pulse Oximeter Temp 98.1 F Temp Source Oral Pulse Oximetry (%) 94 Oxygen Delivery Method Room Air Intake Visit Reasons: EP coughing for 2 weeks, sore throat Intake Note: pt presents with chest congestion with productive coughing with green mucus, sinus congestion with left sided pain, decreased appetite, decrease sense of taste, difficulty breathing last night due to congestion, fatigue x2 weeks (had severe headache in the beginning). Pt reports taking mucinex, saline nasal spray without full relief. Patient Tobacco Use Status: Never used Tobacco Allergies azithromycin Adverse Reaction (Mild, Verified 07/04/25 15:43) upset stomach Do you need a note to return to daycare/school/sports/work: No HPI HPI Comments History of Present Illness Details History - The patient is a 70-year-old individual presenting with persistent cough, sore throat, and congestion. - The illness began approximately two weeks ago with a severe sore throat and headache, followed by a persistent cough and congestion. - The patient reports taking Mucinex for symptom relief but notes that the symptoms have lingered longer than typical illnesses experienced in the past. - The patient denies any history of fever but experienced hot and cold sensations and body aches. - The patient received shingles and influenza vaccinations shortly before the onset of symptoms, which were followed by significant body aches. - The patient denies any history of asthma or COPD and does not take daily allergy medications. [facility] Medical History (Updated 07/04/25 @ 16:22 by Cindy Pelaez PA-C) Osteoporosis Vitamin D deficiency Shoulder pain, right Neck pain on right side Insomnia Annual physical exam Esophageal spasm Mixed basal-squamous cell carcinoma HTN (hypertension) Surgical History S/P MAYELA (total abdominal hysterectomy) H/O colonoscopy Family History Father Hypertension Lymphoma Mother Hypertension Brother Mental health disorder Substance use disorder Social History Housing: House Alcohol intake: current Alcohol intake frequency: a few times a week Patient Tobacco Use Status: Never used Tobacco e-Cigarette/Vaping Use: Never Used service: No Current occupational status: retired Cognitive needs: No Hearing needs: No Vision needs: Yes Review of Systems Narrative Review of Systems - General: Denies fever, reports hot and cold sensations and body aches. - Respiratory: Reports persistent cough and congestion, denies history of asthma or COPD. - Oropharyngeal: Reports severe sore throat. All systems reviewed and are unremarkable except as noted in HPI Physical Exam Exam Exam: Physical Exam General: Cooperative, healthy appearing, comfortable and no acute distress Orientation/consciousness: Patient oriented x3 Limitations: No limitations Head: Normal to inspection Ears: Hearing grossly normal bilaterally, external ears normal, EAC's normal bilaterally and TM's normal bilaterally Nose: Normal external nose present, Normal nares present and No nasal discharge present Face and sinus: Normal facial exam and sinuses nontender Mouth: Normal oral and palatal mucosa present and moist mucous membranes Throat: Tonsils normal, no exudates, uvula midline, posterior oropharynx erythema Eyes: Appearance normal, both eyes and all related structures Neck: Normal visual inspection, full ROM Respiratory: dim but clear, some slight rhonchi. Normal respiratory effort, able to speak in complete sentences, actively coughing, no respiratory distress, not tachypneic, no tripod positioning and no use of accessory muscles. Cardiovascular: Regular rate and rhythm. Normal S1 and S2 Skin: No rashes or lesions noted Neuro: Patient oriented x3 Extremities: Normal to inspection and Yes no clubbing, cyanosis or edema Vital Signs: Last Vital Signs Temp 98.1 F 07/04/25 15:41 Pulse 78 07/04/25 15:41 BP 128/72 07/04/25 15:41 Pulse Ox 94 07/04/25 15:41 Oxygen Delivery Method Room Air 07/04/25 15:41 BMI result Body Mass Index 20.8 Assessment & Plan Assessment & Plan (1) Lower respiratory infection (e.g., bronchitis, pneumonia, pneumonitis, pulmonitis): Code(s): J22 - Unspecified acute lower respiratory infection Plan: Plan Patient was informed and verbally consented to the use of an ambient scribe for clinic note documentation during this visit. - VSS, pt well appearing and PE remarkable for dim lungs. - Likely viral respiratory infection, bronchitis vs PNA vs other - Continue symptomatic treatment with Mucinex and Tessalon Perles for cough suppression at night. - Recommend hot tea with honey for sore throat relief and OTC meds for symptoms. - Chest x-ray ordered to rule out pneumonia due to slightly reduced oxygen saturation and lung findings. - If pneumonia is confirmed, initiate treatment with doxycycline and Augmentin. - Continue with supportive care as the infection is self-limiting and typically resolves in 2-3 weeks. Orders: Orders XR chest 2V Today R05.9 - Cough, unspecified Medications: New benzonatate 200 mg PO BEDTIME PRN 10 caps 0RF cough Coding Level of Care Code Est Pt Level 4 (18654) Diagnoses Lower respiratory infection (e.g., bronchitis, pneumonia, pneumonitis, pulmonitis) J22
[2025-07-04 15:41] VITALS: BP 128/72; PULSE 78; TEMP 36.7; O2SAT 94; BMI 20.8
== END 2025-07-04 16:09 | disposition home or self-care (01) ==
PROVIDERS: PCP Internal Medicine; Visit Provider Physician Assistant
DX: J22 Unspecified acute lower respiratory infection (principal)

== ENCOUNTER → 2025-07-04 16:00 | Outpatient (BNV) | payer MEDICARE, SELFPAY | PROVIDERS: PCP Internal Medicine; Visit Provider Radiology Diagnostic Radiology | DX: R05.9 Cough, unspecified (principal) | CPT/HCPCS: 71046 ==